=== PATIENT | female | born 1985 | race Caucasian/White ===

== ENCOUNTER → 2017-12-17 | Outpatient (REF) | payer BC ==
[2017-12-17 12:38] LABS: BASO # 0.1 10^3/uL (0.0-0.2); BASO % 1.2 % (0.0-1.0); EOS # 0.3 10^3/uL (0.0-0.50); EOS % 5.9 % (0.0-3.0); HEMATOCRIT 40.7 % (36.0-47.0); HEMOGLOBIN 13.1 g/dl (12.0-15.5); IMMATURE GRANULOCYTE % 0.2 % (0-3.0); LYMPH # 1.7 10^3/uL (1.5-4.5); LYMPH % 30.1 % (24.0-44.0); MEAN CORPUSCULAR HEMOGLOBIN 29.2 pg (27.0-33.0); MEAN CORPUSCULAR HGB CONC 32.2 g/dl (32.0-36.5); MEAN CORPUSCULAR VOLUME 90.6 fl (80.0-96.0); MONO # 0.4 10^3/uL (0.0-0.8); MONO % 7.1 % (0.0-5.0); NEUTROPHILS # 3.1 10^3/uL (1.8-7.7); NEUTROPHILS % 55.5 % (36.0-66.0); PLATELET COUNT, AUTOMATED 239 10^3/uL (150-450); RED BLOOD COUNT 4.49 10^6/uL (4.00-5.40); RED CELL DISTRIBUTION WIDTH 12.9 % (11.5-14.5); WHITE BLOOD COUNT 5.6 10^3/uL (4.0-10.0)
[2017-12-17 12:58] LABS: VITAMIN B12 LEVEL 456 PG/ML (247-911)
[2017-12-17 13:11] LABS: FERRITIN 32 NG/ML (8-252); FREE T4 0.94 NG/DL (0.76-1.46); IRON (FE) 55 UG/DL (50-170); PERCENT SATURATION 14.6 % (13.2-45.0); TOTAL IRON BINDING CAPACITY 377 UG/DL (250-450)
[2017-12-18 08:06] LABS: DEHYDROEPIANDROSTERONE SULFATE 51.7 ug/dL (84.8-378.0)
[2017-12-19 00:08] LABS: ANA (HEP2) Negative (.); TESTOSTERONE FREE (DIRECT) 0.6 pg/mL (0.0-4.2)
== END ==
LOC: M SFHCPLAZ 08:36
DX: L65.9 Nonscarring hair loss, unspecified (principal)
CPT/HCPCS: 83550

== ENCOUNTER 2018-04-07 17:17 | Emergency (ER) | payer OTHER, BC ==
[2018-04-07] MEDS: NORCO 5/325MG TABLET (BULK FOR ED) PO (20:09)
== END 2018-04-07 20:12 | disposition home or self-care (01) ==
LOC: M ED 17:17
DX: S60.211A Contusion of right wrist, initial encounter (principal); W01.0XXA Fall on same level from slipping, tripping and stumbling without subsequent striking against object, initial encounter; Y92.89 Other specified places as the place of occurrence of the external cause; Y99.0 Civilian activity done for income or pay; L65.9 Nonscarring hair loss, unspecified; Z87.891 Personal history of nicotine dependence; J30.1 Allergic rhinitis due to pollen; J30.81 Allergic rhinitis due to animal (cat) (dog) hair and dander
CPT/HCPCS: 73110

== ENCOUNTER 2019-12-16 14:32 | Emergency (ER) | payer BC, OTHER ==
[~2019-12-16] VITALS: Ht 165.1 cm; Wt 95.5 kg
[~2019-12-16 14:32] MED LIST: HYDR-3715 PO; PROP1TAB PO
[2019-12-16] MEDS ORDERED: TIZA2TA PO (14:41)
[2019-12-16] MEDS ORDERED: ESCI10TA16 PO (14:41)
[2019-12-16] MEDS ORDERED: PENI1TAB17 PO (14:41)
[2019-12-16] MEDS ORDERED: METOCLOPRAMIDE INJ 10MG/2ML VIAL (J2765 PER 1) IV ONE (15:15)
[2019-12-16] MEDS ORDERED: KETOROLAC 30 MG/ML 1ML VIAL IV ONE (15:15)
[2019-12-16 16:45] VITALS: BP 115/56
== END 2019-12-16 16:57 | disposition home or self-care (01) ==
LOC: M ED 14:32
DX: G43.109 Migraine with aura, not intractable, without status migrainosus (principal); F41.1 Generalized anxiety disorder; Z79.899 Other long term (current) drug therapy; Z79.3 Long term (current) use of hormonal contraceptives
CPT/HCPCS: 96374; 96375; 99284; J1885; J2765

== ENCOUNTER 2021-01-14 16:33 | Emergency (ER) | payer BC ==
[~2021-01-14] VITALS: Ht 165.1 cm; Wt 99.9 kg
[~2021-01-14 16:33] MED LIST changes: +ESCI10TA16 PO; +PENI1TAB17 PO; +TIZA2TA PO
[2021-01-14] MEDS ORDERED: FLOM0.4C39 PO (16:53)
[2021-01-14] MEDS ORDERED: ACETAMINOPHEN TAB 650MG DOSE (2X325MG) PO ONE (20:10)
[2021-01-14 20:20] LABS: BASO % 0.5 % (0.0-1.0); EOS # 0.1 10^3/uL (0.0-0.5); EOS % 1.3 % (0.0-3.0); HEMATOCRIT 37.6 % (36.0-47.0); LYMPH # 1.1 10^3/uL (1.5-5.0); LYMPH % 20.7 % (24.0-44.0); MEAN CORPUSCULAR HEMOGLOBIN 27.9 pg (27.0-33.0); MEAN CORPUSCULAR HGB CONC 31.9 g/dl (32.0-36.5); MEAN CORPUSCULAR VOLUME 87.4 fl (80.0-96.0); MONO # 0.5 10^3/uL (0.0-0.8); MONO % 8.2 % (2.0-8.0); NEUTROPHILS # 3.8 10^3/uL (1.5-8.5); NEUTROPHILS % 69.1 % (36.0-66.0); PLATELET COUNT, AUTOMATED 200 10^3/uL (150-450); WHITE BLOOD COUNT 5.5 10^3/uL (4.0-10.0)
[2021-01-14 20:50] LABS: BLOOD UREA NITROGEN 14 MG/DL (7-18); CALCIUM LEVEL 8.8 MG/DL (8.5-10.1); CARBON DIOXIDE LEVEL 27 MEQ/L (21-32); CHLORIDE LEVEL 105 MEQ/L (98-107); CREATININE FOR GFR 0.82 MG/DL (0.55-1.30); GLOMERULAR FILTRATION RATE > 60.0 (>60); GLUCOSE, FASTING 99 MG/DL (70-100); POTASSIUM SERUM 4.2 MEQ/L (3.5-5.1); SODIUM LEVEL 138 MEQ/L (136-145)
--- NOTE | 2021-01-14 21:34 | REPVR ---
PROCEDURE INFORMATION: Exam: CT Abdomen And Pelvis Without Contrast Exam date and time: 01/14/2021 8:57 PM Age: 35 years old Clinical indication: Abdominal pain; Additional info: R/O obstructive pyelonephritis TECHNIQUE: Imaging protocol: Computed tomography of the abdomen and pelvis without contrast. Radiation optimization: All CT scans at this facility use at least one of these dose optimization techniques: automated exposure control; mA and/or kV adjustment per patient size (includes targeted exams where dose is matched to clinical indication); or iterative reconstruction. COMPARISON: No relevant prior studies available. FINDINGS: Lungs: Minimal bilateral lower lobe fibro-atelectatic change. Liver: Normal. No mass. Gallbladder and bile ducts: Normal. No calcified stones. No ductal dilation. Pancreas: Normal. No ductal dilation. Spleen: Minimal splenic calcification is noted. Adrenal glands: Normal. No mass. Kidneys and ureters: Bilateral extrarenal pelves. Stomach and bowel: Unremarkable. No obstruction. No mucosal thickening. Appendix: A normal appendix is seen. Intraperitoneal space: Unremarkable. No free air. No significant fluid collection. Vasculature: Unremarkable. No abdominal aortic aneurysm. Lymph nodes: Unremarkable. No enlarged lymph nodes. Urinary bladder: Unremarkable as visualized. Reproductive: Status post hysterectomy. Bones/joints: Unremarkable. No acute fracture. Soft tissues: Minimal fat filled umbilical hernia. IMPRESSION: 1. Status post hysterectomy. 2. Otherwise negative CT abdomen/pelvis. No renal or ureteral calculi are evident and there is no evidence of obstructive uropathy. Pyelonephritis is difficult to exclude without contrast. Electronically signed by: Jhonatan Guthrie On 01/14/2021 21:34:06 PM
[2021-01-14] MEDS ORDERED: cefTRIAXone SOD 1 GM in D5W MINI-BAG PLUS 50 ML IV ONE (21:45)
[2021-01-14] MEDS ORDERED: PYRI1TAB5 PO (21:47)
[2021-01-14] MEDS ORDERED: CEPH500C PO (21:47)
[2021-01-14 22:14] VITALS: BP 128/65
== END 2021-01-14 22:16 | disposition home or self-care (01) ==
LOC: M ED 16:33
DX: N30.90 Cystitis, unspecified without hematuria (principal); F41.9 Anxiety disorder, unspecified; Z87.442 Personal history of urinary calculi
CPT/HCPCS: 74176; 80048; 81001; 85025; 87040; 87088; 87186; 96365; 99284; J0696

== ENCOUNTER → 2021-01-29 | Outpatient (REF) | payer BC ==
[~2021-01-29] MED LIST changes: +CEPH500C PO; +FLOM0.4C39 PO; +PYRI1TAB5 PO
[2021-01-29 15:44] LABS: APPEARANCE, URINE CLEAR (CLEAR); BACTERIA, URINE AUTO NEGATIVE (NEGATIVE); BILIRUBIN, URINE AUTO NEGATIVE (NEGATIVE); BLOOD, URINE BLOOD NEGATIVE (NEGATIVE); COLOR, URINE STRAW (YELLOW); GLUCOSE, URINE (UA) AUTO NEGATIVE (NEGATIVE); KETONE, URINE AUTO NEGATIVE (NEGATIVE); LEUKOCYTE ESTERASE, URINE AUTO TRACE (NEGATIVE); NITRITE, URINE AUTO NEGATIVE (NEGATIVE); PROTEIN, URINE AUTO NEGATIVE (NEGATIVE); RBC, URINE AUTO 0 /HPF (0-3); SPECIFIC GRAVITY URINE AUTO 1.005 (1.002-1.035); SQUAMOUS EPITHELIAL CELL UR AU 1 /HPF (0-6); UROBILINOGEN, URINE AUTO 0.2 mg/dL (0.0-2.0); WBC, URINE AUTO 0 /HPF (0-3)
== END ==
LOC: M SFHCPLAZ 12:59
PROVIDERS: ATTEND Family Medicine
DX: R30.0 Dysuria (principal)

== ENCOUNTER → 2021-03-07 | Outpatient (REF) | payer BC | LOC: M SFHCPLAZ 12:59 | PROVIDERS: ATTEND Family Medicine | DX: J02.9 Acute pharyngitis, unspecified (principal) ==

== ENCOUNTER → 2021-04-09 | Outpatient (CLI) | payer BC ==
--- NOTE | 2021-04-10 22:52 | REPVR ---
PROCEDURE INFORMATION: Exam: CT Maxillofacial Without Contrast, Sinus Exam date and time: 04/09/2021 11:51 AM Age: 35 years old Clinical indication: Face pain; Additional info: Chronic sinusitis TECHNIQUE: Imaging protocol: CT Maxillofacial without contrast. Focus on the sinuses. Radiation optimization: All CT scans at this facility use at least one of these dose optimization techniques: automated exposure control; mA and/or kV adjustment per patient size (includes targeted exams where dose is matched to clinical indication); or iterative reconstruction. COMPARISON: No relevant prior studies available. FINDINGS: Frontal sinuses: Complete opacification of the right frontal sinus. Left frontal sinus is clear. Ethmoid air cells: Mucosal thickening and fluid causing partial opacification of the ethmoid air cells, worse on the right. There is opacification of both frontal ethmoid recesses. Sphenoid sinuses: Clear. Maxillary sinuses: Circumferential mucosal thickening with mild fluid in both maxillary sinuses, worse on the right. Partial opacification of both ostiomeatal complexes. Nasal cavity/Septum: Nasal septum is deviated to the right with a right sided septal spur. No perforation or hematoma. Mild mucosal thickening in the nasal cavity. Orbital cavity: Orbits are normal. Globes are unremarkable. Bones/joints: Unremarkable. Soft tissues: Unremarkable. IMPRESSION: Chronic pansinusitis. Electronically signed by: Ean Lora On 04/10/2021 22:52:20 PM
== END ==
LOC: M PLAIMG 11:33
PROVIDERS: ATTEND Family Medicine
DX: J32.4 Chronic pansinusitis (principal)

== ENCOUNTER → 2021-04-11 | Outpatient (CLI) | payer BC ==
--- NOTE | 2021-04-11 09:12 | REP ---
INDICATION: RIBB PAIN ON RIGHT. COMPARISON: Comparison radiographs are from February 12, 2013. TECHNIQUE: Five views including PA chest. FINDINGS: PA chest radiograph is normal. There is no evidence of pneumothorax or hydrothorax. Mediastinum is not widened. Heart size is normal. Lung morales are clear. Multiple views of the right rib cage show intact right ribs. No bony destructive lesion or fracture is seen. The IMPRESSION: Negative right rib radiographic series. <Electronically signed by Jorge Ji > 04/11/21 0944
== END ==
LOC: M PLAIMG 08:35
PROVIDERS: ATTEND Family Medicine
DX: R07.81 Pleurodynia (principal)

== ENCOUNTER → 2021-05-15 | Outpatient (CLI) | payer BC ==
[~2021-05-15] MED LIST changes: +ACET32TAB PO; +ALLE180T33 PO; +FLON1SPR
== END ==
LOC: M LABSMTC 10:42
PROVIDERS: ATTEND Anesthesiology
DX: Z11.52 Encounter for screening for COVID-19 (principal)

== ENCOUNTER 2021-05-20 08:13 | Day surgery (SDC) | payer BC ==
[~2021-05-20] VITALS: Ht 165.1 cm; Wt 100.2 kg
[~2021-05-20 08:13] MED LIST changes: +LR 1,000 ML IV ONE
--- OUTSIDE RECORDS SUMMARY | 2021-05-20 08:18 | CCD ---
Author Author [facility] Organization [facility] Address [address] [place], [place] [id number] Phone Care Team Providers Care Wide Area Network Administrator Name Role Phone FINA HENDERSON Unavailable Allergies, Adverse Reactions, Alerts latex 03/15/2016 adhesive 09/18/2019 Allergies Removed from Chart: No Known Drug Allergies 09/18/2019 Medications * Discontinued: * CLHOÉ CABALLERO * citalopram 10 mg tablet 02/13/2021 * FINA GABRIEL * No Active Medications 03/15/2016 * amoxicillin 875 mg tablet 05/30/2020 * terbinafine HCL 1 % topical cream 01/12/2021 * triamcinolone acetonide 0.025 % topical cream 01/12/2021 * ketorolac 10 mg tablet 02/13/2021 * Zofran 4 mg tablet 02/13/2021 * Flomax 0.4 mg capsule 02/13/2021 * Macrobid 100 mg capsule 02/13/2021 * Mucinex DM 60 mg-1,200 mg tablet,extended release 12 hr 04/30/2021 * Sudafed 30 mg tablet 04/30/2021 * azelastine 137 mcg (0.1 %) nasal spray aerosol 04/30/2021 * Chloraseptic Max Sore Throat 1.5 %-33 % mucosal spray 04/30/2021 * * Lidocaine Viscous 2 % mucosal solution 03/17/2016 * dexAMETHasone 4 mg tablet 03/17/2016 * No Active Medications 03/17/2016 * ketorolac 10 mg tablet 05/03/2017 * Augmentin 500 mg-125 mg tablet 05/03/2017 * Augmentin 875 mg-125 mg tablet 09/18/2019 * predniSONE 20 mg tablet 09/18/2019 * predniSONE 20 mg tablet 03/05/2021 * amoxicillin 875 mg tablet 03/05/2021 * Pre-existing: * SUMAtriptan 100 mg tablet Problems Addressed During This Encounter Contact with and (suspected) exposure to other viral communicable diseases (Z20.828) 02/13/2021 Nasal congestion (R09.81) 02/13/2021 Cough (R05) 03/05/2021 Diarrhea, unspecified (R19.7) 04/30/2021 Headache, unspecified (R51.9) 04/30/2021 Resolved: Acute pharyngitis, unspecified (J02.9) 09/18/2019 Migraine without aura, intractable, with status migrainosus (G43.011) 09/18/2019 Acute bronchitis, unspecified (J20.9) 09/18/2019 Tension-type headache, unspecified, intractable (G44.201) 09/18/2019 Overweight (E66.3) 09/18/2019 Asymptomatic menopausal state (Z78.0) 09/18/2019 Nonscarring hair loss, unspecified (L65.9) 09/18/2019 Acute pharyngitis, unspecified (J02.9) 09/18/2019 Acute frontal sinusitis, unspecified (J01.10) 09/18/2019 Acute maxillary sinusitis, unspecified (J01.00) 09/18/2019 Myalgia, unspecified site (M79.10) 09/18/2019 Acute nasopharyngitis [common cold] (J00) 09/18/2019 Postnasal drip (R09.82) 09/18/2019 Jaw pain (R68.84) 05/30/2020 Frequency of micturition (R35.0) 06/26/2020 Dysuria (R30.0) 06/26/2020 Rash and other nonspecific skin eruption (R21) 06/26/2020 Contact with and (suspected) exposure to other viral communicable diseases (Z20.828) 01/12/2021 Acute pharyngitis, unspecified (J02.9) 01/12/2021 Nasal congestion (R09.81) 01/12/2021 Cough (R05) 01/12/2021 Hematuria, unspecified (R31.9) 02/13/2021 Dysuria (R30.0) 02/13/2021 Unspecified abdominal pain (R10.9) 02/13/2021 Acute sinusitis, unspecified (J01.90) 03/05/2021 Otitis media, unspecified, right ear (H66.91) 03/05/2021 Acute pharyngitis, unspecified (J02.9) 04/30/2021 Results Leukocytes: Negative 05/30/2020 Nitrite: Negative 05/30/2020 Urobilinogen: 0.2 mg/dL 05/30/2020 Protein: Negative 05/30/2020 pH: 6.0 05/30/2020 Blood (Urine): Negative 05/30/2020 Specific Ariton: 1.030 05/30/2020 Ketone: Negative 05/30/2020 Bilirubin: Negative 05/30/2020 Glucose: Negative 05/30/2020 SARS COV2 SOURCE: NASOPHARYNGEAL 2019 Leukocytes: Moderate 01/12/2021 Nitrite: Negative 01/12/2021 Urobilinogen: 0.2 mg/dL 01/12/2021 Protein: Negative 01/12/2021 pH: 5.5 01/12/2021 Blood (Urine): Hemol +++ 01/12/2021 Specific Ariton: 1.015 01/12/2021 Ketone: Negative 01/12/2021 Bilirubin: Negative 01/12/2021 Glucose: Negative 01/12/2021 Chief Complaint COVID TESTING Upper Respiratory Infection, Likely ruel l; no bacterial source appreciated; nontoxic appearance at this time; afebrile and vital signs unremarkable; will treat as follows: Rest, fluids, time, and reassurance. [COVID test prior to entry into the building was NEGATIVE]Medications as above F/u if symptoms worsen including high grade fevers of 102.5 F, shortness of breath, increased work of breathing, or lethargic appearance. Patient understands and concurs with treatment plan. sinus congestion Patient tests negative for Covid 19 by P CRStart amoxicillin and prednisone for ear infection and sinus infection continue Mary and Flonase sinus infection Back painCVA tendernessHematuriaAlmost c ertainly kidney stoneHistoryStart Flomax ketorolac and ZofranLots of fluidsCT scan as soon as it can be approved by her insurance company KIDNEY STONE [Patient exposed to other individual nico t has a known or suspected COVID19 infection.][Patient is showing some symptoms of Covid like illness.] [Patient requires negative testing prior to return to work/school.]Patient wishes to have testing conducted. All questions answered for patient. Follow up as needed. PolyuriaUrinalysis unrevealingBlood suga r normalFungal rashStart terbinafine and triamcinolone yeast infection Jaw painLikely dental infectionStart kali xicillinFollow-up of the dentist tooth pain Unremarkable examVital signs are Yong apid flu was negativeDiscussed with patient she does have some evidence of postnasal discharge and fluid behind the tympanic membranes which could be causing her discomfortDifferential does include viral infection as well given close contact with others with similar symptomsPatient was educated on supportive symptom managementFollow-up if symptoms fail to improve SICK C/O sinus pressure, cough, nasal congest ion, BOOKER, ear pressure, dizziness, post nasal drip, SOB, nausea, chills x 2 weeks. Headache since this am. Cold symptoms wi th productive cough. C/O BOOKER, nausea, light sensitivity beginn ing 11:00 today. C/O ST, white patches in throat, BOOKER begi nning this AM. Procedures Performed and Ordered Today * RAPID STREP 03/15/2016 * MED SERV, LILIAN/WKEND/HOLIDAY 03/15/2016 * MED SERV, LILIAN/WKEND/HOLIDAY 03/17/2016 * INJECTION IM/SC 03/17/2016 * INFLUENZA ASSAY W/OPTIC 07/24/2019 * MED SERV, LILIAN/WKEND/HOLIDAY 07/24/2019 * MED SERV, LILIAN/WKEND/HOLIDAY 09/18/2019 * URINALYSIS NONAUTO W/O SCOPE 05/30/2020 * MED SERV, LILIAN/WKEND/HOLIDAY 05/30/2020 * INFECTIOUS AGENT ANTIGEN DETECTION 06/26/2020 * URINALYSIS NONAUTO W/O SCOPE 01/12/2021 * MED SERV, LILIAN/WKEND/HOLIDAY 01/12/2021 * COVID PCR 02/13/2021 * INFECTIOUS AGENT DETECTION COMPLETED WITHIN 2 DAYS 02/13/2021 * COVID PCR 03/05/2021 * INFECTIOUS AGENT DETECTION COMPLETED WITHIN 2 DAYS 03/05/2021 * COVID PCR 04/30/2021 * INFECTIOUS AGENT DETECTION COMPLETED WITHIN 2 DAYS 04/30/2021 * * Lab: Collected Date 03/15/16 11:54 03/15/2016 THROAT PO CULTURE 03/15/2016 GLUCOSE BLOOD TEST 05/30/2020 COVID PCR 06/26/2020 Collected Date 01/12/21 13:14 01/12/2021 URINE CULTURE 01/12/2021 Imaging: CT ABDOMEN AND PELVIS W/O CONTRAST renal stone protocol 01/12/2021 Injection: PROMETHAZINE (PHENERGAN) 25MG 03/17/2016 KETOROLAC 30MG 03/17/2016 Vital signs Body Temperature: Heart Rate: Respiratory Rate: BP: Height: Weight: BMI: O2 Percentage dC Oximetry : Inhaled Oxygen Concentration: 97.9F 03/05/2021 74 beats per minute 03/05/2021 16 breaths per minute 03/05/2021 128/ 82 mmHg 03/05/2021 5ft, 5in 03/05/2021 220lbs 03/05/2021 36.606 03/05/2021 99% 03/05/2021 21% 03/05/2021 Immunizations Social History Smoking Status: Never smoker. 03/05/2021 Reason for Referral Functional Status Plan of Treatment Procedures Scheduled: CT ABDOMEN AND PELVIS W/O CONTRAST 01/12/2021 Appointments Sched ed: Tuesday, March 15, 2016, 11:30 AM, FINA GABRIEL Thursday, March 17, 2016, 4:40 PM, FINA GABRIEL Tuesday, August 02, 2016, 4:40 PM, NEW GABRIEL Wednesday, March 15, 2017, 10:10 AM, Davion Lay NP Wednesday, May 03, 2017, 1:10 PM, NEW GABRIEL Wednesday, July 24, 2019, 1:10 PM, HI RICHARDSON NP Wednesday, September 18, 2019, 12:00 PM, FINA GABRIEL Saturday, May 30, 2020, 7:20 PM, FINA GABRIEL Friday, June 26, 2020, 6:00 PM, GERALDINE MUSE NP Tuesday, January 12, 2021, 12:40 PM, FINA GABRIEL Saturday, February 13, 2021, 4:20 PM, FINA GABRIEL Friday, March 05, 2021, 5:50 PM, DONTAE GABRIEL Friday, April 30, 2021, 10:00 AM, Visits Covid Instructions: <Follow up with primary care> Return if symptoms worsen <Follow up with primary care> Consider using a barrier method for control while on antibiotics as antibiotics may inhibit the effectiveness of oral contraceptives. Return if symptoms worsen When taking antibiotics, also take probiotics. <Follow up with primary care> We will call with lab and/or xray results If your symptoms worsen, go to the Emergency Room. <Follow up with primary care> Return if symptoms worsen <Follow up with primary care> Return if symptoms worsen <Follow up with primary care> Consider using a barrier method for control while on antibiotics as antibiotics may inhibit the effectiveness of oral contraceptives. Treat fever with ibuprofen and/or acetaminophen per label instructions as needed unless allergic or otherwise intolerant. Return if symptoms worsen When taking antibiotics, also take probiotics. Follow up with the dentist <Follow up with primary care> Return if symptoms worsen Increase clear water intake, salt water gargle 4 times a day, honey or lemon teaAllergy nasal spray recommendedTylenol or Motrin for body aches or feverNasal decongestant recommendedOffered prescription and you declined <Follow up with primary care> Treat fever with ibuprofen and/or acetaminophen per label instructions as needed unless allergic or otherwise intolerant. Return if symptoms worsen When taking antibiotics, also take probiotics. Return if symptoms worsen If your symptoms worsen, go to the Emergency Room. When taking antibiotics, also take probiotics. The patient knows that she is not to take her a laxative tonight after having the injection todayShe may take the antibiotic for the respiratory symptoms that she is havingIf she is not better she needs to follow up with her PCP If your symptoms worsen, go to the Emergency Room. followup with primary care Return if symptoms worsen We will call with lab and/or xray results Payers Insurance Policy Type Po licy ID Relation Subscriber Expi ration [facility] [employer] [id number] Self JANET HA 07/11/2020 [facility] [employer] [id number] Self JANET HA ID IDENTIFICATION Other Insurance Self JANET HA Encounters OFFICE/OUTPATIENT SIT,EST 04/30/2021 Diagnoses Diarrhea, unspecified Headache, unspecified Cough Contact with and (suspected) exposure to other viral communicable diseases Nasal congestion OFFICE/OUTPATIENT SIT, EST 03/05/2021 Diagnoses Cough Acute pharyngitis, unspecified Contact with and (suspected) exposure to other viral communicable diseases Nasal congestion OFFICE/OUTPATIENT SIT, EST 02/13/2021 Diagnoses Contact with and (suspected) exposure to other viral communicable diseases Nasal congestion Acute sinusitis, unspecified Otitis media, unspecified, right ear OFFICE/OUTPATIENT SIT, EST 01/12/2021 Diagnoses Hematuria, unspecified Dysuria Unspecified abdominal pain OFFICE/OUTPATIENT SIT, EST 06/26/2020 Diagnoses Contact with and (suspected) exposure to other viral communicable diseases Acute pharyngitis, unspecified Nasal congestion Cough OFFICE/OUTPATIENT SIT, EST 06/26/2020 Diagnoses Contact with and (suspected) exposure to other viral communicable diseases Acute pharyngitis, unspecified Nasal congestion Cough OFFICE/OUTPATIENT SIT, EST 05/30/2020 Diagnoses Frequency of micturition Dysuria Rash and other nonspecific skin eruption OFFICE/OUTPATIENT SIT, EST 09/18/2019 Diagnoses Jaw pain OFFICE/OUTPATIENT SIT, EST 07/24/2019 OFFICE/OUTPATIENT SIT, EST 05/03/2017 OFFICE/OUTPATIENT SIT, EST 08/02/2016 OFFICE/OUTPATIENT SIT, EST 03/17/2016 OFFICE/OUTPATIENT SIT, NEW 03/15/2016
--- OUTSIDE RECORDS SUMMARY | 2021-05-20 08:18 | CCD ---
Author Author [facility] Organization [facility] Address Unknown Phone Unavailable Care Team Providers Care Benzol Still Operator Name Role Phone Zaria Cartagena Unavailable PROBLEMS Type Condition ICD9-CM Code CLN06-XO Code Onset Dates Condition S tatus W/U Status Risk SNOMED Code Notes Problem Acquired absence of both cervix and uterus Z90.710 Active confirmed 965435221 Problem Androgenetic alopecia L64.9 Active confirmed 05469212 Problem Cigarette nicotine dependence in remission F17.211 Active confirmed 227102686 Problem Chronic sinusitis, unspecified location J32.9 Active confirmed 75853153 Problem Acute non-seasonal allergic rhinitis, unspecified trigger J30.89 Active confirmed 51552124 Problem Chronic pansinusitis J32.4 Active confirmed 15635962 Problem Migraine syndrome G43.909 Active confirmed 3 1258087 Problem Generalized anxiety disorder F41.1 Active confirme d 39603150 Problem Psychophysiologic insomnia F51.04 Active confirmed 170556762 Problem Chronic tension-type headache, not intractable G44 .229 Active confirmed 077637901 ALLERGIES Allergen (clinical drug ingredient) Drug/Non Drug Allergy do cumented on EMR Reaction Allergy Type Onset Date Status adhesives Rash Non Drug Allergy Active Wheat wheat GI upset Non Drug Allergy Active levofloxacin levoFLOXacin([facility] Code:[address]-83) Rash, swelling Drug Allergy Active ENCOUNTERS from 1983 to 2021-04-12 Encounter Location Date Provider Diagnosis [facility] [phone] [place] [address] Mar, Zaria Cartagena Chronic pansinusitis J32.4 a nd Rib pain on right side R07.81 IMMUNIZATIONS No Information SOCIAL HISTORY Tobacco Use: Social History Observation Description Date Details (start date - stop date) Former Smoker Sex Assigned At : Social History Observation Description Sex Assigned At Unknown Education: Question Answer Notes Level of Education: High School Audit Question Answer Notes Total Score: 0 Interpretation: Alcohol Education Language: Question Answer Notes Languages spoken: [place] Synagogue: Question Answer Notes Synagogue No methodist beliefs that would impact health care. Domestic Violence: Question Answer Notes Status: Partnered Number of months/years in current relationship? 9 years with current partner, no abuse Sexual Hx: Question Answer Notes Had sex in the last 12 months (vaginal, oral, or anal)? Yes with Men only Drug and Alcohol Question Answer Notes Total Score: 0 Interpretation: No problems reported Alcohol Screening: Question Answer Notes Did you have a drink containing alcohol in the past year? No Points 0 Interpretation Negative BMI Care Goal Follow-Up Question Answer Notes Above Normal BMI Follow-Up Dietary management educatio n, guidance, and counseling Tobacco Use: Question Answer Notes Are you a: former smoker - last cigarette was on 10/11/2016 REASON FOR REFERRAL from 1983 to 2021-04-12 Reason Please evaluate and treat; h as persistent sinusitis despite Augmentin x 3 weeks, doxycycline x 2 weeks; had allergic reaction to levofloxacin Diagnosis 1 Chronic pansinusitis (J32.4) Referral Organization [facility] Referring Provider First Name Zaria Referring Provider Last Name Mitzi Referring Provider Specialty Family Medicine Referred Provider [facility] ([facility]) Referred Provider Specialty Otolaryngology Referral Priority Routine General Notes Pamela Montanez 04/11/2021 11:15:40 AM > referral faxed VITAL SIGNS Weight 220 lbs Mar, Height 65.25 in Mar, BMI 36.33 kg/m2 Mar, Heart Rate 96 /min Mar, Respiratory Rate 18 /min Mar, Temperature 97.0 degrees Fahrenheit Mar, Oximetry 97% Mar, Blood pressure systolic 112 mm Hg Mar, Blood pressure diastolic 70 mm Hg Mar, MEDICATIONS Medication SIG (Take, Route, Frequency, Duration) Notes Start Da te End Date Status diphenhydrAMINE HCl 25 MG 1 tablet Orally Q4H PRN for 10 day(s) Mar, Active Mary Allergy 60 MG 1 tablet as needed Orally Once a day Active Multi Complete - as directed Orally Active Sudafed Cold/Cough 34-25-724-250 MG 2 capsules every 4 hours as needed Orally Four times a day Not-Taking tiZANidine HCl 2 MG 1 tablet as needed Orally Three times a day for 30 Days November, Not-Taking Flonase Allergy Relief 50 MCG/ACT 1 spray in each nostril Nasall y Once a day Active Doxycycline Hyclate 100 MG 1 tablet Orally every 12 hrs for 10 d ay(s) Mar, Active PROCEDURES No Information RESULTS No Results REASON FOR VISIT F/u sinusitis MEDICAL (GENERAL) HISTORY Type Description Date Medical History Anxiety Medical History Insomnia Medical History Allergic rhinitis - environmental and la eileen allergies Medical History History of endometriosis and adenomyosis, treated with total hysterectomy in 2009 Medical History History of cervical pre-cancer Medical History Asthma as a child Medical History History of kidney stones Surgical History left arm 1995 Surgical History lithotripsy for kidney stone on the righ t Surgical History LEEP/partial cervicectomy 2007 Surgical History laparoscopy for diagnosis of endometrios is 2004 Surgical History D&C status post miscarriage 2005, 2008 Surgical History laparoscopic assisted total hysterectomy/bilateral salpingo-oophorectomy 2009 Hospitalization History surgeries as above Goals Section No Information Health Concerns No Information MEDICAL EQUIPMENT No Information MENTAL STATUS No Information FUNCTIONAL STATUS No Information ASSESSMENTS Encounter Date Diagnosis Assessment Notes Treatment Notes Treatm ent Clinical Notes Mar, Chronic pansinusitis (ICD-10 - J32.4) Mar, Rib pain on right side (ICD-10 - R07.81) Requesting xrays; states she broke ribs coughing with bronchitis several years ago. _update: xrays negative for fx; advised patient this is likely MSK/Chest wall strain from coughing, recommended OTC ibuprofen or acetaminophen and heating pad, and treat underlying problem causing the coughing (sinusitis) so that she can heal. PLAN OF TREATMENT Medication Medication Name Sig Start Date Stop Date Doxycycline Hyclate 100 MG 1 tablet Orally every 12 hrs for 10 day(s) Mar, Treatment Notes Assessment Notes Clinical Notes Rib pain on right side Requesting xrays; states she broke ribs coughing with bronchitis several years ago._update: xrays negative for fx; advised patient this is likely MSK/Chest wall strain from coughing, recommended OTC ibuprofen or acetaminophen and heating pad, and treat underlying problem causing the coughing (sinusitis) so that she can heal. Future Test Test Name Order Date PLZ RIBS UNILATERAL WITH PA CHEST [id number] Referrals Referral Date Details Please evaluate and treat; h as persistent sinusitis despite Augmentin x 3 weeks, doxycycline x 2 weeks; had allergic reaction to levofloxacin, ENT ([facility]) [facility] Next Appt Details 6 months Reason:Annual Provider Name:Zaria Cartagena, 2021-10-11 08:15:00 AM, [address], , [place], [phone], Follow Up:6 monthsAnnual Insurance Providers Payer Name Payer Address Payer Phone Insured Name Patient Relati onship to Insured Coverage Start Date Coverage End Date BCBS [place] PPO [phone] [facility] [employer] [place] [address] JANET HA self
--- OUTSIDE RECORDS SUMMARY | 2021-05-20 08:18 | CCD | Continuity of Care Document ---
Author Author Tresa SIMEON MD Organization Unknown Address [address] [facility], [address] [place] [address] Phone [phone] Care Team Providers Care Cardiovascular Technologist Name Role Phone Zaria Cartagena M.D. AUTM [phone] Problems Active Problems Provider Date Allergic asthma without status asthmaticus Santiago Simeon MD Onset: 04/29/2021 Chronic sinusitis Santiago Simeon MD Onset: 05/01/2021 Hypertrophy of nasal turbinates Santiago Simeon MD Onset: 1 Deviated nasal septum Santiago Simeon MD Onset: 05/01/2021 Allergic rhinitis Santiago Simeon MD Onset: 05/01/2021 Social History Type Date Description Comments Sex Unknown ETOH Use Never used alcohol Tobacco Use Start: Unknown End: Unknown Patient is a former smoker Recreational Drug Use Never Used Drugs Allergies and adverse reactions Active Allergies Criticality Reaction | Severity Comments Date Levofloxacin Unable to assess criticality Rash 04/29/2021 Adhesives Unable to assess criticality 04/29/2021 Medications Active Medications SIG Qnty Indications Ordering Provide r Date Multivitamin Tablets 1 by mouth every day Unknown Mary Allergy 60mg Tablets 1 by mouth every day Unknown Flonase Allergy Relief 50mcg/Act Suspension 2 sprays per nostril daily Unknown 0 Immunizations Description No Information Available Vital Signs Date Vital Result Comment 05/01/2021 10:49am BP Systolic 104 mmHg BP Diastolic 78 mmHg Heart Rate 96 /min O2 % BldC Oximetry 99 % Height 65.75 inches 5'5.75" Weight 222.00 lb BMI (Body Mass Index) 36.1 kg/m2 [place] Body Weight 125 lb Weight 100.699 kg BSA (Body Surface Area) 2.09 m2 Results Description No Information Available Procedures Description No Information Available Medical Devices Description No Information Available Encounters Description No Information Available Assessments Date Code Description Provider 05/01/2021 J30.9 Allergic rhinitis, unspecified Abe Simeon MD 05/01/2021 J34.2 Deviated nasal septum Santiago brunner MD 05/01/2021 J34.3 Hypertrophy of nasal turbinates Santiago Simeon MD 05/01/2021 J32.9 Chronic sinusitis, unspecified Abe Simeon MD Plan of Treatment 05/01/2021 - Santiago Simeon MD* J30.9 Allergic rhinitis, unspecified* Comments:* She is currently taking Flonase and Mary to treat her allergies. We will refer her for formal allergy testing. * J34.2 Deviated nasal septum* Comments:* We discussed the possibility for septal correction same day as the sinus surgery. She would like to proceed with this same day. * J34.3 Hypertrophy of nasal turbinates * J32.9 Chronic sinusitis, unspecified* Comments:* We discussed the CT findings with Tresa today. We discussed the CT findings with Tresa today. We discussed continued medical management versus surgical intervention. We reviewed the risks and benefits and all questions were answered. She indicated that would like to proceed with surgical intervention. She will avoid any NSAID type products and Multivite for 2 weeks prior to the procedure. We will arrange this in the near future. As soon as schedule permits. We will start he r on Doxycycline again to clear the infection. Functional Status Description No Information Available Mental Status Description No Information Available Referrals Refer to Reason for Referral Status Appt Date Santiago Simeon M.D. CHRONIC PANSINUSITIS Scheduled [address] [address] [phone]
--- OUTSIDE RECORDS SUMMARY | 2021-05-20 08:19 | CCD ---
Author Author [facility] Organization [facility] Address Unknown Phone Unavailable Care Team Providers Care Irrigation Pump Installer Name Role Phone Zaria Cartagena Unavailable PROBLEMS Type Condition ICD9-CM Code [id number] Code Onset Dates Condition S tatus W/U Status Risk SNOMED Code Notes Problem Acute non-seasonal allergic rhinitis, unspecified trigger J30.89 Active confirmed 24280201 Problem Acquired absence of both cervix and uterus Z90.710 Active confirmed 284487044 Problem Androgenetic alopecia L64.9 Active confirmed 15575045 Problem Chronic tension-type headache, not intractable G44 .229 Active confirmed 219846661 Problem Chronic sinusitis, unspecified location J32.9 Active confirmed 84899872 Problem Cigarette nicotine dependence in remission F17.211 Active confirmed 534074396 Problem Migraine syndrome G43.909 Active confirmed 3 0021501 Problem Generalized anxiety disorder F41.1 Active confirme d 29067844 Problem Psychophysiologic insomnia F51.04 Active confirmed 570034727 ALLERGIES Allergen (clinical drug ingredient) Drug/Non Drug Allergy do cumented on EMR Reaction Allergy Type Onset Date Status adhesives Rash Non Drug Allergy Active Wheat wheat GI upset Non Drug Allergy Active levofloxacin levoFLOXacin([facility] Code:[address]-60) Rash, swelling Drug Allergy Active ENCOUNTERS from 1983 to 2021-04-05 Encounter Location Date Provider Diagnosis [address] [phone] [place] [address] Mar, Zaria Cartagena Generalized anxiety disorder F41.1 and Chronic sinusitis, unspecified location J32.9 IMMUNIZATIONS No Information SOCIAL HISTORY Tobacco Use: Social History Observation Description Date Details (start date - stop date) Former Smoker Sex Assigned At : Social History Observation Description Sex Assigned At Unknown Education: Question Answer Notes Level of Education: High School Audit Question Answer Notes Total Score: 0 Interpretation: Alcohol Education Language: Question Answer Notes Languages spoken: Dominican Druze: Question Answer Notes Druze No sabianist beliefs that would impact health care. Domestic [...] cigarette was on 10/11/2016 REASON FOR REFERRAL No Information VITAL SIGNS Weight 221 lbs Mar, Height 65.25 in Mar, BMI 36.49 kg/m2 Mar, Heart Rate 94 /min Mar, Respiratory Rate 18 /min Mar, Temperature 96.1 degrees Fahrenheit Mar, Oximetry 100 Mar, Blood pressure systolic 110 mm Hg Mar, Blood pressure diastolic 62 mm Hg Mar, MEDICATIONS Medication SIG (Take, Route, Frequency, Duration) Notes Start Da te End Date Status diphenhydrAMINE HCl 25 MG 1 tablet Orally Q4H PRN for 10 day(s) Mar, Active Sudafed Cold/Cough [id number] MG 2 capsules every 4 hours as needed Orally Four times a day Not-Taking Flonase Allergy Relief 50 MCG/ACT 1 spray in each nostril Nasall y Once a day Active Multi Complete - as directed Orally Active tiZANidine HCl 2 MG 1 tablet as needed Orally Three times a day for 30 Days November, Not-Taking Mary Allergy 60 MG 1 tablet as needed Orally Once a day Active Doxycycline Hyclate 100 MG 1 tablet Orally every 12 hrs for 10 d ay(s) Mar, Active PROCEDURES No Information RESULTS No Results REASON FOR VISIT F/u sinusitis, anxiety MEDICAL (GENERAL) HISTORY Type Description Date Medical [...] Treatment Notes Treatm ent Clinical Notes Mar, Generalized anxiety disorder (ICD-10 - F41.1) She states anxiety improved since we spoke 2 months ago; she had a lot of work stress and her employer has hired another person to help her so she feels less stressed. She does not want to start medication for anxiety at this time. Mar, Chronic sinusitis, unspecified location (ICD-10 - J32.9) Some improvement with 3 week course of Augmentin, but then had rapid recurrence of symptoms. Will treat with levofloxacin and order sinus CT; contingency plan is referral to ENT. PLAN OF TREATMENT Medication Medication Name Sig Start Date Stop Date Mary Allergy 60 MG 1 tablet as needed Orally Once a day diphenhydrAMINE HCl 25 MG 1 tablet Orally Q4H PRN for 10 day(s) Mar, Doxycycline Hyclate 100 MG 1 tablet Orally every 12 hrs for 10 day(s) Mar, Flonase Allergy Relief 50 MCG/ACT 1 spray in each nostril Nasall y Once a day Treatment Notes Assessment Notes Clinical Notes Generalized anxiety disorder She states anxiety improved since we spoke 2 months ago; she had a lot of work stress and her employer has hired another person to help her so she feels less stressed. She does not want to start med ication for anxiety at this time. Chronic sinusitis, unspecified location Some improvement with 3 week course of Augmentin, but then had rapid recurrence of symptoms. Will treat with levofloxacin and order sinus CT; contingency plan is referral to ENT. Future Test Test Name Order Date CT Maxillofacial w/out Contrast [id number] Next Appt Details as sched in 1 week Reason: Provider Name:Zaria Cartagena, 2021-04-11 08:00:00 AM, [address] [facility], , [place], [address], Insurance Providers Payer Name Payer Address Payer Phone Insured Name Patient Relati onship to Insured Coverage Start Date Coverage End Date [facility] [phone] [facility] [employer] [facility] [employer] [place] [id number] JANET HA self
--- OUTSIDE RECORDS SUMMARY | 2021-05-20 08:19 | CCD ---
Author Author [facility] Organization [facility] Address Unknown Phone Unavailable Care Team Providers Care Fitter / Welder Name Role Phone Simon Coffey PA Unavailable Unavailable Coffey, Simon PA Unavailable Unavailable Coffey, Simon PA Unavailable Unavailable Coffey, Simon PA Unavailable Unavailable Coffey, Simon PA Unavailable Unavailable Coffey, Simon PA Unavailable Unavailable Coffey, Simon PA Unavailable Unavailable Coffey, Simon PA Unavailable Unavailable Coffey, Simon PA Unavailable Unavailable Coffey, Simon PA Unavailable Unavailable Coffey, Simon PA Unavailable Unavailable Coffey, Simon PA Unavailable Unavailable Coffey, Simon PA Unavailable Unavailable Coffey, Simon PA Unavailable Unavailable Coffey, Simon PA Unavailable Unavailable Coffey, Simon PA Unavailable Unavailable Coffey, Simon PA Unavailable Unavailable Coffey, Simon PA Unavailable Unavailable Coffey, Simon PA Unavailable Unavailable Coffey, Simon PA Unavailable Unavailable Coffey, Simon PA Unavailable Unavailable PHYSICIAN, PHYSICIAN ER Unavailable Unavailable JefstSergio MD Unavailable Unavailable SarmastSergio MD Unavailable Unavailable SarmastSergio MD Unavailable Unavailable SarmastSergio MD Unavailable Unavailable SarmastSergio MD Unavailable Unavailable SarmastSergio MD Unavailable Unavailable SarmastSergio MD Unavailable Unavailable SarmastSergio MD Unavailable Unavailable SarmastSergio MD Unavailable Unavailable SarmastSergio MD Unavailable Unavailable SarmastSergio MD Unavailable Unavailable SarmastSergio MD Unavailable Unavailable SarmastSergio MD Unavailable Unavailable SarmastSergio MD Unavailable Unavailable SarmastSergio MD Unavailable Unavailable SarmastSergio MD Unavailable Unavailable SarmastSergio MD Unavailable Unavailable SarmastSergio MD Unavailable Unavailable StephaniemastSergio MD Unavailable Unavailable StephaniemastSergio MD Unavailable Unavailable SarmastSergio MD Unavailable Unavailable SarmastSergio MD Unavailable Unavailable SarmastSergio MD Unavailable Unavailable StephaniemastSergio MD Unavailable Unavailable StephaniemastSergio MD Unavailable Unavailable SarmastSergio MD Unavailable Unavailable SarmastSergio MD Unavailable Unavailable SarmastSergio MD Unavailable Unavailable SarmastSergio MD Unavailable Unavailable SarmastSergio MD Unavailable Unavailable SarmastSergio MD Unavailable Unavailable StephaniemastSergio MD Unavailable Unavailable StephaniemastSergio MD Unavailable Unavailable SarmastSergio MD Unavailable Unavailable SarmastSergio MD Unavailable Unavailable SarmastSergio MD Unavailable Unavailable SarmastSergio MD Unavailable Unavailable SarmastSergio MD Unavailable Unavailable SarmastSergio MD Unavailable Unavailable SarmastSergio MD Unavailable Unavailable SarmastSergio MD Unavailable Unavailable SarmastSergio MD Unavailable Unavailable SarmastSergio MD Unavailable Unavailable StephaniemastSergio MD Unavailable Unavailable Sergio Abel MD Unavailable Unavailable Jonelle Rosario MD Unavailable Unavailable Jonelle Rosario MD Unavailable Unavailable Jonelle Rosario MD Unavailable Unavailable Jonelle Rosario MD Unavailable Unavailable Jonelle Rosario MD Unavailable Unavailable Jonelle Rosario MD Unavailable Unavailable Jonelle Rosario MD Unavailable Unavailable Jonelle Rosario MD Unavailable Unavailable Jonelle Rosario MD Unavailable Unavailable Jonelle Rosario MD Unavailable Unavailable Jonelle Rosario MD Unavailable Unavailable Jonelle Rosario MD Unavailable Unavailable Jonelle Rosario MD Unavailable Unavailable Jonelle Rosario MD Unavailable Unavailable Jonelle Rosario MD Unavailable Unavailable Jonelle Rosario MD Unavailable Unavailable Jonelle Rosario MD Unavailable Unavailable Jonelle Rosario MD Unavailable Unavailable Jonelle Rosario MD Unavailable Unavailable Jonelle Rosario MD Unavailable Unavailable Jonelle Rosario MD Unavailable Unavailable Jonelle Rosario MD Unavailable Unavailable Jonelle Rosario MD Unavailable Unavailable Jonelle Rosario MD Unavailable Unavailable Jonelle Rosario MD Unavailable Unavailable Jonelle Rosario MD Unavailable Unavailable Jonelle Rosario MD Unavailable Unavailable Jonelle Rosario MD Unavailable Unavailable Jonelle Rosario MD Unavailable Unavailable Jonelle Rosario MD Unavailable Unavailable Jonelle Rosario MD Unavailable Unavailable Jonelle Rosario MD Unavailable Unavailable Jonelle Rosario MD Unavailable Unavailable Jonelle Rosario MD Unavailable Unavailable Jonelle Rosario MD Unavailable Unavailable Jonelle Rosario MD Unavailable Unavailable Jonelle Rosario MD Unavailable Unavailable Jonelle Rosario MD Unavailable Unavailable Jonelle Rosario MD Unavailable Unavailable Jonelle Rosario MD Unavailable Unavailable Jonelle Rosario MD Unavailable Unavailable Jonelle Rosario MD Unavailable Unavailable Jonelle Rosario MD Unavailable Unavailable Jonelle Rosario MD Unavailable Unavailable Jonelle Rosario MD Unavailable Unavailable Jonelle Rosario MD Unavailable Unavailable Jonelle Rosario MD Unavailable Unavailable Jonelle Rosario MD Unavailable Unavailable Jonelle Rosario Samah Unavailable Unavailable Abraham, O Samah MD Unavailable Unavailable Jonelle Rosario Samah Unavailable Unavailable Abraham O Samah Unavailable Unavailable Jonelle Rosario Samah Unavailable Unavailable Abraham O Samah MD Unavailable Unavailable Abraham O Samah MD Unavailable Unavailable Abraham O Samah MD Unavailable Unavailable Abraham O Samah MD Unavailable Unavailable Abraham O Samah Unavailable Unavailable Abraham O Samah MD Unavailable Unavailable Abraham O Samah Unavailable Unavailable Abraham O Samah MD Unavailable Unavailable Abraham O Samah Unavailable Unavailable Abraham O Samah Unavailable Unavailable Abraham O Samah MD Unavailable Unavailable Abraham O Samah MD Unavailable Unavailable Abraham O Samah MD Unavailable Unavailable Abraham O Samah MD Unavailable Unavailable Abraham O Samah MD Unavailable Unavailable Abraham O Samah Unavailable Unavailable Abraham O Samah Unavailable Unavailable Jonelle Rosario Samah Unavailable Unavailable Abraham O Samah MD Unavailable Unavailable Abraham O Samah Unavailable Unavailable Jonelle Rosario Samah Unavailable Unavailable Jonelle Rosario Samah Unavailable Unavailable Jonelle Rosario Samah Unavailable Unavailable Jonelle Rosario Samah Unavailable Unavailable Abraham O Samah Unavailable Unavailable Abraham O Samah Unavailable Unavailable HENDERSON, W FINA PA Unavailable Unavailable HENDERSON, W FINA PA Unavailable Unavailable HENDERSON, W FINA PA Unavailable Unavailable HENDERSON, W FINA PA Unavailable Unavailable HENDERSON, W FINA PA Unavailable Unavailable HENDERSON, W FINA PA Unavailable Unavailable HENDERSON, W FINA PA Unavailable Unavailable HENDERSON, W FINA PA Unavailable Unavailable HENDERSON, W FINA PA Unavailable Unavailable HENDERSON, W FINA PA Unavailable Unavailable HENDERSON, W FINA PA Unavailable Unavailable HENDERSON, W FINA PA Unavailable Unavailable HENDERSON, W FNIA PA Unavailable Unavailable HENDERSON, W FINA PA Unavailable Unavailable HENDERSON, W FINA PA Unavailable Unavailable HENDERSON, W FINA PA Unavailable Unavailable HENDERSON, W FINA PA Unavailable Unavailable HENDERSON, W FINA PA Unavailable Unavailable HENDERSON, W FINA PA Unavailable Unavailable HENDERSON, W FINA PA Unavailable Unavailable HENDERSON, W FINA PA Unavailable Unavailable HENDERSON, W FINA PA Unavailable Unavailable HENDERSON, W FINA PA Unavailable Unavailable HENDERSON, W FINA PA Unavailable Unavailable HENDERSON, W FINA PA Unavailable Unavailable HENDERSON, W FINA PA Unavailable Unavailable HENDERSON, W FINA PA Unavailable Unavailable HENDERSON, W FINA PA Unavailable Unavailable HENDERSON, W FINA PA Unavailable Unavailable HENDERSON, W FINA PA Unavailable Unavailable HENDERSON, W FINA PA Unavailable Unavailable HENDERSON, W FINA PA Unavailable Unavailable HENDERSON, W FINA PA Unavailable Unavailable HENDERSON, W FINA PA Unavailable Unavailable HENDERSON, W FINA PA Unavailable Unavailable HENDERSON, W FINA PA Unavailable Unavailable HENDERSON, W FINA PA Unavailable Unavailable HENDERSON, W FINA PA Unavailable Unavailable HENDERSON, W FINA PA Unavailable Unavailable HENDERSON, W FINA PA Unavailable Unavailable HENDERSON, W FINA PA Unavailable Unavailable HENDERSON, W FINA PA Unavailable Unavailable HENDERSON, W FINA PA Unavailable Unavailable HENDERSON, W FINA PA Unavailable Unavailable HENDERSON, W FINA PA Unavailable Unavailable HENDESRON, W FINA PA Unavailable Unavailable HENDERSON, W FINA PA Unavailable Unavailable HENDERSON, W FINA PA Unavailable Unavailable HENDERSON, W FINA PA Unavailable Unavailable HENDERSON, W FINA PA Unavailable Unavailable HENDERSNO, W FINA PA Unavailable Unavailable HENDERSON, W FINA PA Unavailable Unavailable HENDERSON, W FINA PA Unavailable Unavailable HENDERSON, W FINA PA Unavailable Unavailable HENDERSON, W FINA PA Unavailable Unavailable HENDERSON, W FINA PA Unavailable Unavailable HENDERSON, W FINA PA Unavailable Unavailable HENDERSON, W FINA PA Unavailable Unavailable HENDERSON, W FINA PA Unavailable Unavailable HENDERSON, W FINA PA Unavailable Unavailable HENDERSON, W FINA PA Unavailable Unavailable HENDERSON, W FINA PA Unavailable Unavailable HENDERSON, W FINA PA Unavailable Unavailable HENDERSON, W FINA PA Unavailable Unavailable HENDERSON, W FINA PA Unavailable Unavailable HENDERSON, W FINA PA Unavailable Unavailable HENDERSON, W FINA PA Unavailable Unavailable HENDERSON, W FINA PA Unavailable Unavailable HENDERSON, W FINA PA Unavailable Unavailable HENDERSON, W FINA PA Unavailable Unavailable HENDERSON, W FINA PA Unavailable Unavailable HENDERSON, W FINA PA Unavailable Unavailable HENDERSON, W FINA PA Unavailable Unavailable HENDERSON, W FINA PA Unavailable Unavailable HENDERSON, W FINA PA Unavailable Unavailable HENDERSON, W FINA PA Unavailable Unavailable HENDERSON, W FINA PA Unavailable Unavailable HENDERSON, W FINA PA Unavailable Unavailable HENDERSON, W FINA PA Unavailable Unavailable HENDERSON, W FINA PA Unavailable Unavailable HENDERSON, W FINA PA Unavailable Unavailable HENDERSON, W FINA PA Unavailable Unavailable HENDERSON, W FINA PA Unavailable Unavailable HENDERSON, W FINA PA Unavailable Unavailable HENDERSON, W FINA PA Unavailable Unavailable HENDERSON, W FINA PA Unavailable Unavailable HENDERSON, W FINA PA Unavailable Unavailable HENDERSON, W FINA PA Unavailable Unavailable JESSE ADAMS MD Unavailable Unavailable JESSE ADAMS MD Unavailable Unavailable JESSE ADAMS MD Unavailable Unavailable JESSE ADAMS MD Unavailable Unavailable JESSE ADAMS MD Unavailable Unavailable JESSE ADAMS MD Unavailable Unavailable JESSE ADAMS MD Unavailable Unavailable JESSE ADAMS MD Unavailable Unavailable PHYSICIAN, ER Unavailable Unavailable Re-disclosure Warning The records that you are about to access may contain information from federally-assisted alcohol or drug abuse programs. If such information is present, then the following federally mandated warning applies: This information has been disclosed to you from records protected by federal confidentiality rules (42 CFR part 2). The federal rules prohibit you from making any further disclosure of this information unless further disclosure is expressly permitted by the written consent of the person to whom it pertains or as otherwise permitted by 42 CFR part 2. A general authorization for the release of medical or other information is NOT sufficient for this purpose. The Federal rules restrict any use of the information to criminally investigate or prosecute any alcohol or drug abuse patient.The records that you are about to access may contain highly sensitive health information, the redisclosure of which is protected by Article 27-F of the [facility] Public Health law. If you continue you may have access to information: Regarding HIV / AIDS; Provided by facilities licensed or operated by the [facility] Office of Mental Health; or Provided by the [facility] Office for People With Developmental Disabilities. If such information is present, then the following [facility] mandated warning applies: This information has been disclosed to you from confidential records which are protected by state law. State law prohibits you from making any further disclosure of this information without the specific written consent of the person to whom it pertains, or as otherwise permitted by law. Any unauthorized further disclosure in violation of state law may result in a fine or assisted sentence or both. A general authorization for the release of medical or other information is NOT sufficient authorization for further disc losure. Allergies and Adverse Reactions Type Description Substance Reaction Status Data Source(s ) Drug allergy No Known Allergies No Known Allergies [facility] Encounters Encounter Providers Location Date Indications Data Source(s ) OFFICE/OUTPATIENT VISIT,EST 04/30/2021Outpatient Attender: FINA GABRIEL 04/30/2021 12:03:59 PM EDT [facility] ([facility]) [place] [address] [facility] [address] 04/11/2021 12:00:00 AM EDT [facility] [place] [address] [facility] [address] 04/05/2021 12:00:00 AM EDT eCW1 ([facility]) Outpatient [address] [facility] [place] [address] 04/04/2021 12:00:00 AM EDT eCW1 ([facility]) [place] [address] [facility] [facility] [address] 03/14/2021 12:00:00 AM EDT eCW1 ([facility]) [place] [address] [facility] [facility] [address] 03/07/2021 12:00:00 AM EDT eCW1 ([facility]) OutpatientOFFICE/OUTPATIENT VISIT, EST 03/05/2021 Attender: Navi GABRIEL 03/05/2021 07:00:00 PM EDT [facility]MAK[facility] ([facility]) OutpatientOFFICE/OUTPATIENT VISIT, EST 02/13/2021 Attender: FINA GABRIEL 02/13/2021 05:23:55 PM EDT [facility] ([facility]) [place] [address] [facility] [facility] [address] 02/13/2021 12:00:00 AM EDT eCW1 ([facility] [place] [address] [facility] [facility] [facility] [address] 01/30/2021 12:00:00 AM EDT eCW1 ([facility]) [place] [address] [facility] [facility] [address] 01/29/2021 12:00:00 AM EDT eCW1 ([facility]) Outpatient Attender: FINA GABRIEL 01/28/2021 10:00:0 0 AM EDT R10.9 [facility] R10.9 [place] [address] [facility] [facility] [address] 01/28/2021 12:00:00 AM EDT eCW1 ([facility]) OutpatientOFFICE/OUTPATIENT VISIT, EST 01/12/2021 Attender: FINA GABRIEL 01/12/2021 12:43:39 PM EDT [facility] ([facility]) Emergency Attender: ER PHYSICIAN 12/13/2020 04:42:18 PM E DT Lab [facility] Emergency Attender: JESSE ADAMS MDAttender: ER PHYSICIAN 12/13/2020 03:47:00 PM EDT - 12/13/2020 07:09:00 PM EDT General acute hospital Patient discharged. Emergency Attender: Sergio Abel MD 09/2020 02:05:00 PM EDT - 12/13/2020 03:21:00 PM EDT CSQUC- vomiting,vertigo,sinus congestion [facility] CSQUC- vomiting,vertigo,sinus congestion Patient discharged. OFFICE/OUTPATIENT VISIT, EST 06/26/2020Outpatient Attender: Jewel GABRIEL 06/26/2020 06:03:39 PM EST [facility] ([facility]) OutpatientOFFICE/OUTPATIENT VISIT, EST 06/26/2020 Attender: Jewel GABRIEL 06/26/2020 06:03:39 PM EST [facility] ([facility]) OutpatientOFFICE/OUTPATIENT VISIT, EST 05/30/2020 Attender: FINA GABRIEL 05/30/2020 07:19:34 PM EST [facility] ([facility]) Outpatient Attender: Giselle Rosario MD [facility] 03/30/2020 10:30:00 AM EDT MEDENT ([facility]) Immunizations Vaccine Date Status Description Data Source(s) COVID-19 VACCINE SiOx 12/25/2020 12:00:00 AM EDT completed [facility] Vaccine Series Complete: YESThis Data wa s Submitted to [facility] Via [facility]. COVID-19 VACCINE Pfizer 12/01/2020 12:00:00 AM EDT completed [facility] Vaccine Series Complete: NOThis Data was Submitted to [facility] Via [employer]. Medications Medication Brand Name Start Date Product Form Dose Route Admi nistrative Instructions Pharmacy Instructions Status Indications Reaction Description Data Source(s) doxycycline hyclate 100 MG Oral Capsule DOXYCYCLINE HYCLATE 05/01/2021 12:00:00 AM EDT capsule 28 TAKE ONE CAPSULE BY MOUTH TW O TIMES A DAY FOR 14 DAYS TAKE ONE CAPSULE BY MOUTH TWO TIMES A DAY FOR 14 DAYS SOLD: 05/04/2021 [facility] 100 mg 04/11/2021 12:00:00 AM EDT tablet,delayed release (DR/EC) 20 TAKE ONE TABLET BY MOUTH EVERY 12 HOURS FOR 10 DAYS TAKE ONE TABLET BY MOUTH EVERY 12 HOURS FOR 10 DAYS SOLD: 04/15/2021 [facility] doxycycline hyclate 100 MG Oral Capsule DOXYCYCLINE HYCLATE 04/05/2021 12:00:00 AM EDT capsule 20 TAKE ONE CAPSULE BY MOUTH EV HALIE 12 HOURS TAKE ONE CAPSULE BY MOUTH EVERY 12 HOURS SOLD: 04/06/2021 [facility] doxycycline hyclate 100 MG Delayed Relea se Oral Tablet Doxycycline Hyclate 100 MG Doxycycline Hyclate 100 MG 04/05/2021 12:00:00 AM EDT 1.0 {table t} active Doxycycline Hyclate 100 MG eCW1 ([facility]) doxycycline hyclate 100 MG Delayed Relea se Oral Tablet Doxycycline Hyclate 100 MG Doxycycline Hyclate 100 MG 04/05/2021 12:00:00 AM EDT 1.0 {table t} active Doxycycline Hyclate 100 MG eCW1 ([facility]) Diphenhydramine Hydrochloride 25 MG Oral Tablet diphen hydrAMINE HCl 25 MG diphenhydrAMINE HCl 25 MG 04/05/2021 12:00:00 AM EDT 1.0 {tablet} active diphenhydrAMINE HCl 25 MG eCW1 ( [facility]) Diphenhydramine Hydrochloride 25 MG Oral Tablet diphen hydrAMINE HCl 25 MG diphenhydrAMINE HCl 25 MG 04/05/2021 12:00:00 AM EDT 1.0 {tablet} active diphenhydrAMINE HCl 25 MG eCW1 ( [facility]) Diphenhydramine Hydrochloride 25 MG Oral Tablet diphen hydrAMINE HCl 25 MG diphenhydrAMINE HCl 25 MG 04/05/2021 12:00:00 AM EDT 1.0 {tablet} active diphenhydrAMINE HCl 25 MG eCW1 ( [facility]) doxycycline hyclate 100 MG Delayed Relea se Oral Tablet Doxycycline Hyclate 100 MG Doxycycline Hyclate 100 MG 04/05/2021 12:00:00 AM EDT 1.0 {table t} active Doxycycline Hyclate 100 MG eCW1 ([facility]) 750 mg 04/04/2021 12:00:00 AM EDT tablet 10 TAKE ONE TABLET BY MOUTH EVERY DAY FOR 10 DAYS TAKE ONE TABLET BY MOUTH EVERY DAY FOR 10 DAYS SOLD: [facility] Amoxicillin 875 MG / Clavulanate 125 MG Oral Tablet 87 5-125 mg AMOXICILLIN/POTASSIUM CLAV 03/14/2021 12:00:00 AM EDT tablet 20 TAKE ONE TABLET BY MOUTH EVERY 12 HOURS FOR 10 DAYS TAKE ONE TABLET BY MOUTH EVERY 12 HOURS FOR 10 DAYS SOLD: 03/17/2021 [facility] Amoxicillin 875 MG / Clavulanate 125 MG Oral Tablet Amoxicillin-Pot Clavulanate 875-125 MG Amoxicillin-Pot Clavulanate 875-125 MG 03/07/2021 12:00:00 AM ED T 1.0 {tablet} active Amoxicillin-Pot Cla vulanate 875-125 MG eCW1 ([facility]) Amoxicillin 875 MG / Clavulanate 125 MG Oral Tablet Amoxicillin-Pot Clavulanate 875-125 MG Amoxicillin-Pot Clavulanate 875-125 MG 03/07/2021 12:00:00 AM ED T 1.0 {tablet} active Amoxicillin-Pot Cla vulanate 875-125 MG eCW1 ([facility]) Amoxicillin 875 MG / Clavulanate 125 MG Oral Tablet 87 5-125 mg AMOXICILLIN/POTASSIUM CLAV 03/07/2021 12:00:00 AM EDT tablet 20 TAKE ONE TABLET BY MOUTH EVERY 12 HOURS FOR 10 DAYS TAKE ONE TABLET BY MOUTH EVERY 12 HOURS FOR 10 DAYS SOLD: 03/07/2021 [facility] 137 mcg (0.1 %) 03/06/2021 12:00:00 AM EDT aerosol,spray 30 USE 2 SPRAYS IN EACH NOSTRIL TWO TIMES A DAY USE 2 SPRAYS IN EACH NOSTRIL TWO TIMES A DAY SOLD: 03/07/2021 [facility] Mucinex DM 60 mg-1,200 mg tablet,extended release 12 hr 03/05/2021 12:00:00 AM EDT 1 completed 04/30/2021 ATIF RTMARICH ([facility]) Pseudoephedrine Hydrochloride 30 MG Oral Tablet [Sudaf ed] Sudafed 30 mg tablet Sudafed 30 mg tablet 03/05/2021 12:00:00 AM EDT completed 04/30/2021 COLIN ([facility]) azelastine 137 mcg (0.1 %) nasal spray aerosol 03/05/2021 12:00:00 AM EDT completed 04/30/2021 LENNIE Small ([facility] [place]) Chloraseptic Max Sore Throat 1.5 %-33 % mucosal spray 03/05/2021 12:00:00 AM EDT completed 04/30/2021 ATIF PALMA ([facility]) Prednisone 20 MG Oral Tablet predniSONE 20 mg tablet predniS ONE 20 mg tablet 02/13/2021 12:00:00 AM EDT 2 completed 03/05/2021 COLIN ([facility]) Amoxicillin 875 MG Oral Tablet amoxicillin 875 mg tabl et amoxicillin 875 mg tablet 02/13/2021 12:00:00 AM EDT 1 completed 03/05/2021 COLIN ([facility] [place]) 875 mg 02/13/2021 12:00:00 AM EDT tablet 20 TAKE ONE TABLET BY MOUTH EVERY 12 HOURS FOR 10 DAYS TAKE ONE TABLET BY MOUTH EVERY 12 HOURS FOR 10 DAYS SO LD: 02/13/2021 [facility] 20 mg 02/13/2021 12:00:00 AM EDT tablet 10 TAKE TWO TABLETS BY MOUTH EVERY DAY FOR 5 DAYS TAKE TWO TABLETS BY MOUTH EVERY DAY FOR 5 DAYS SOLD: [facility] Sulfamethoxazole 800 MG / Trimethoprim 1 60 MG Oral Tablet [Bactrim] Bactrim DS 800-160 MG Bactrim DS 800-160 MG 01/29/2021 12:00:00 AM EDT 1.0 {table t} suspended Bactrim DS 800-160 MG eCW1 ( [facility]) Sulfamethoxazole 800 MG / Trimethoprim 1 60 MG Oral Tablet [Bactrim] Bactrim DS 800-160 MG Bactrim DS 800-160 MG 01/29/2021 12:00:00 AM EDT 1.0 {table t} active Bactrim DS 800-160 MG eCW1 ( [facility]) Sulfamethoxazole 800 MG / Trimethoprim 1 60 MG Oral Tablet [Bactrim] Bactrim DS 800-160 MG Bactrim DS 800-160 MG 01/29/2021 12:00:00 AM EDT 1.0 {table t} active Bactrim DS 800-160 MG eCW1 ( [facility]) 800-160 mg 01/29/2021 12:00:00 AM EDT tablet 6 TAKE ONE TABLET BY MOUTH TWICE A DAY TAKE ONE TABLET BY MOUTH TWICE A DAY SOLD: 01/29/2021 [facility] Escitalopram 10 MG Oral Tablet ESCITALOPRAM OXALATE 01/29/2021 1 2:00:00 AM EDT tablet 90 TAKE ONE TABLET BY MOUTH EVERY D AY TAKE ONE TABLET BY MOUTH EVERY DAY SOLD: 01/29/2021 [facility] Sulfamethoxazole 800 MG / Trimethoprim 1 60 MG Oral Tablet [Bactrim] Bactrim DS 800-160 MG Bactrim DS 800-160 MG 01/29/2021 12:00:00 AM EDT 1.0 {table t} suspended Bactrim DS 800-160 MG eCW1 ( [facility]) Sulfamethoxazole 800 MG / Trimethoprim 1 60 MG Oral Tablet [Bactrim] Bactrim DS 800-160 MG Bactrim DS 800-160 MG 01/29/2021 12:00:00 AM EDT 1.0 {table t} active Bactrim DS 800-160 MG eCW1 ( [facility]) NITROFURANTOIN, MACROCRYSTALS 25 MG / Ni trofurantoin, Monohydrate 75 MG Oral Capsule [Macrobid] Macrobid 100 mg capsule Macrobid 100 mg capsule 01/16/2021 12:00:00 AM EDT 1 completed CHARTMIRICH ([facility]) NITROFURANTOIN, MACROCRYSTALS 25 MG / Ni trofurantoin, Monohydrate 75 MG Oral Capsule 100 mg NITROFURANTOIN MONOHYD/M-CRYST 01/16/2021 12:00:00 AM EDT ca psule 10 TAKE ONE CAPSULE BY MOUTH TWICE A DAY TAKE ONE CAPSULE BY MOUTH TWICE A DAY SOLD: 01/16/2021 [facility] Cephalexin 500 MG Oral Capsule CEPHALEXIN 01/15/2021 12:00:00 AM EDT capsule 30 TAKE ONE CAPSULE BY MOUTH THREE TIMES A DAY TAKE ONE C APSULE BY MOUTH THREE TIMES A DAY SOLD: 01/15/2021 [facility] 200 mg 01/15/2021 12:00:00 AM EDT tablet 9 TAKE ONE TABLET BY MOUTH EVERY 8 HOURS TAKE ONE TABLET BY MOUTH EVERY 8 HOURS SOLD: 01/15/2021 [facility] 10 mg 01/12/2021 12:00:00 AM EDT tablet 12 TAKE ONE TABLET BY MOUTH THREE TIMES A DAY TAKE ONE TABLET BY MOUTH THREE TIMES A DAY SOLD: 01/12/2021 [facility] Ketorolac Tromethamine 10 MG Oral Tablet ketorolac 10 mg tablet ketorolac 10 mg tablet 01/12/2021 12:00:00 AM EDT 1 completed 02/13/2021 CHARTMIRICH ([facility] [place]) Tamsulosin hydrochloride 0.4 MG Oral Capsule [Flomax] Flomax 0.4 mg capsule Flomax 0.4 mg capsule 01/12/2021 12:00:00 AM EDT 1 completed 02/13/2021 CHARTMIRICH ([facility] [place]) 0.4 mg 01/12/2021 12:00:00 AM EDT capsule 10 TAKE ONE CAPSULE BY MOUTH AT BEDTIME TAKE ONE CAPSULE BY MOUTH AT BEDTIME SOLD: 01/12/2021 [facility] Ondansetron 4 MG Oral Tablet [Zofran] Zofran 4 mg tablet Zof ran 4 mg tablet 01/12/2021 12:00:00 AM EDT 1 completed 02/13/2021 [facility] ([facility]) 4 mg 01/12/2021 12:00:00 AM EDT tablet 10 TAKE ONE TABLET BY MOUTH THREE TIMES A DAY NEEDED TAKE ONE TABLET BY MOUTH THREE TIMES A DAY NEEDED S OLD: 01/12/2021 [facility] 4 mg 12/13/2020 12:00:00 AM EDT tablet 10 TAKE ONE TABLET BY MOUTH EVERY 6 HOURS NEEDED FOR NAUSEA AND VOMITING TAKE ONE TABLET BY MOUTH EVERY 6 HOURS NEEDED FOR NAUSEA AND VOMITING SOLD: 12/14/2020 [facility] Meclizine Hydrochloride 25 MG Oral Tablet MECLIZINE HCL 12/13/2020 12:00:00 AM EDT tablet 30 TAKE ONE TABLET BY MOUTH FOUR TIMES A DAY NEEDED FOR DIZZINESS TAKE ONE TABLET BY MOUTH FOUR TIMES A DAY NEEDED FO R DIZZINESS SOLD: 12/14/2020 [facility] Terbinafine hydrochloride 10 MG/ML Topic al Cream terbinafine HCL 1 % topical cream terbinafine HCL 1 % topical cream 05/30/2020 12:00:00 AM EST 1 completed 01/12/2021 [facility] ([facility]) Triamcinolone Acetonide 0.25 MG/ML Topic al Cream triamcinolone acetonide 0.025 % topical cream triamcinolone acetonide 0.025 % topical cream 05/30/20 12:00:00 AM EST 1 completed 01/12/2021 ROMY TMAKER ([facility]) 10 mg 03/30/2020 12:00:00 AM EDT tablet 60 TAKE TWO TABLETS BY MOUTH AT BEDTIME TAKE TWO TABLETS BY MOUTH AT BEDTIME SOLD: 04/01/2020 [facility] Amoxicillin 875 MG Oral Tablet amoxicillin 875 mg tabl et amoxicillin 875 mg tablet 09/18/2019 12:00:00 AM EST 1 completed 05/30/2020 [facility] ([facility]) Insurance Providers Payer name Policy type / Coverage type Policy ID Covered green party ID Covered green party's relationship to acosta Policy [place] Plan Information BLUE CROSS [id number] SP [id number] BLUE CROSS [id number] SP [id number] BLUE CROSS [id number] SP [id number] SELF PAY BLUE CROSS [id number] SP [id number] SELF PAY [place]/307 [id number] SP [id number] [place]/307 [id number] SP [id number] EXCELLUS BLUE CROSS BLUE SHIELD HEA [id number] S [id number] ID IDENTIFICATION [id number] Other Insurance [id number] [place]/307 [id number] SP [id number] JEAN-CLAUDE BATESAN [id number] SP [id number] SELF PAY UNAVAILABLE SELF UNAVAILA BLE ANSI-Commercial [id number] ANSI-Commercial [id number] JEAN-CLAUDE SALAS O [id number] STATE INSURANCE FUND [id number] SP [id number] OTHER WORKERS COMPENSATION [id number] SP [id number] Excell[employer] Blue Cross [id number] Blue Cross/Chica eld [id number] Excell[employer] Blue Cross 0 Blue Cross/Shield Excell[employer] Blue Cross 0 Blue Cross/Shield [place] P[place] 302/307 [id number] SP [id number] [place]/307 [id number] SP [id number] [place] 302/307 [id number] SP [id number] ALEX [id number] SP [id number] AMERICHOICE [id number] SP [id number] SELF PAY UNAVAILABLE SP UNAVAILA BLE BCBS [place]/307 [id number] SP [id number] [place] PPO 302/307 [id number] SP [id number] [facility] [place]/307 [id number] SP [id number] ID IDENTIFICATION [id number] Other Insurance [id number] [employer] Blue Cross [id number] Blue Cross/[place] el[place] [id number] [employer] [id number] Blue Cross/[place] eld [id number] Problems, Conditions, and Diagnoses Code Display Name Description Problem Type Effective Dates Data Source(s) R09.89 Other specified symptoms and signs involving the circulatory and respiratory systems R09.89 - Other specified symptoms and si gns involving the circulatory and respiratory systems Diagnosis 12/13/2020 02:05:00 PM E DT [facility] R42 Dizziness and giddiness R42 - Dizziness and giddiness Diagnosis 12/13/2020 02:05:00 PM EDT [facility] R11.10 Vomiting, unspecified R11.10 - Vomiting, unspecified D iagnosis 12/13/2020 02:05:00 PM EDT [facility] J30.9 Allergic rhinitis Allergic rhinitis Problem 05/01/2021 12:00:00 AM EDT [facility] ([facility], ) J34.2 Deviated nasal septum Deviated nasal septum Problem 05/01/2021 12:00:00 AM EDT [facility] ([facility], ) J34.3 Hypertrophy of nasal turbinates Hypertrophy of nasal t urbinates Problem 05/01/2021 12:00:00 AM EDT [facility] ([facility], ) J32.9 Chronic sinusitis Chronic sinusitis Problem 05/01/2021 12:00:00 AM EDT [facility] ([facility], ) R51.9 Headache, unspecified Headache, unspecified (R51.9) [id number] 04/30/2021 12:03:59 PM EDT [facility] ([facility]) R19.7 Diarrhea, unspecified Diarrhea, unspecified (R19.7) [id number] 04/30/2021 12:03:59 PM EDT [facility] ([facility]) [id number] Allergic asthma without status asthmatic us Allergic asthma without status asthmaticus Problem 04/29/2021 12:00:00 AM EDT MEDENT ([facility], ) J32.4 [id number] Chronic pansinusitis Problem 04/11/2021 12:0 0:00 AM EDT eCW1 ([facility]) J32.9 [id number] Chronic sinusitis, unspecified location P roblem 04/04/2021 12:00:00 AM EDT eCW1 ([facility]) J02.9 Acute pharyngitis, unspecified Acute pha ryngitis, unspecified (J02.9) 04/30/2021 [id number] 03/05/2021 07:00:00 PM EDT - 04/30/2021 12:00:00 AM EDT [facility] ([facility]) R05 Cough Cough (R05) 03/05/2021 [id number] 03/05/2021 07: 00:00 PM EDT [facility] ([facility]) H66.91 Acute right otitis media Otitis media, u nspecified, right ear (H66.91) 03/05/2021 [id number] 02/13/2021 05:23:55 PM EDT - 03/05/2021 12:00:00 AM EDT [facility] ([facility]) J01.90 Acute sinusitis, unspecified Acute sinus itis, unspecified (J01.90) 03/05/2021 [id number] 02/13/2021 05:23:55 PM EDT - 03/05/2021 12:00:00 AM EDT [facility] ([facility]) R09.81 Nasal congestion Nasal congestion (R09.81) 02/13/2021 [id number] 02/13/2021 05:23:55 PM EDT [facility] ([facility]) Z20.828 Contact with and (suspected) exposure to other viral communicable diseases Contact with and (suspected) exposure to other viral communicable diseases (Z20.828) 02/13/2021 [id number] 02/13/2021 05:23:55 PM EDT [facility] ([facility]) R10.9 Unspecified abdominal pain Unspecified abdominal pain (R10.9) 02/13/2021 [id number] 01/12/2021 12:43:39 PM EDT - 02/13/2021 12:00:00 AM ED T [facility] ([facility]) R30.0 Dysuria Dysuria (R30.0) 02/13/2021 [id number] 09/2020 12:43:39 PM EDT - 02/13/2021 12:00:00 AM EDT [facility] ([facility]) R31.9 Hematuria, unspecified Hematuria, unspecified (R31.9) 02/13/2021 [id number] 01/12/2021 12:43:39 PM EDT - 02/13/2021 12:00:00 AM EDT [facility] ([facility]) R05 Cough Cough (R05) 01/12/2021 [id number] 06:03:39 PM EST - 01/12/2021 12:00:00 AM EDT [facility] ([facility]) R09.81 Nasal congestion Nasal congestion (R09.81) 01/12/2021 [id number] 06/26/2020 06:03:39 PM EST - 01/12/2021 12:00:00 AM EDT [facility] ([facility]) J02.9 Acute pharyngitis, unspecified Acute pha ryngitis, unspecified (J02.9) 01/12/2021 [id number] 06/26/2020 06:03:39 PM EST - 01/12/2021 12:00:00 AM EDT [facility] ([facility]) Z20.828 Contact with and (suspected) exposure to other viral communicable diseases Contact with and (suspected) exposure to other viral communicable diseases (Z20.828) 01/12/2021 [id number] 06/26/2020 06:03:39 PM EST - 01/12/2021 12:00:00 AM EDT [facility] ([facility]) R21 Rash and other nonspecific skin eruption Rash and other nonspecific skin eruption (R21) 06/26/2020 [id number] 05/30/2020 07:19:34 PM EST - 06/26/2020 12:00:00 AM EST [facility] ([facility]) R30.0 Dysuria Dysuria (R30.0) 06/26/2020 [id number] 07/30/2019 07:19:34 PM EST - 06/26/2020 12:00:00 AM EST [facility] ([facility]) R35.0 Frequency of micturition Frequency of micturitio n (R35.0) 06/26/2020 [id number] 05/30/2020 07:19:34 PM EST - 06/26/2020 12:00:00 AM ES T [facility] ([facility]) R68.84 Jaw pain Jaw pain (R68.84) 05/30/2020 [id number] 09/18/2019 12:02:38 PM EDT - 05/30/2020 12:00:00 AM EST [facility] ([facility]) Surgeries/Procedures Procedure Description Date Indications Data Source(s) INFECTIOUS AGENT DETECTION COMPLETED WITHIN 2 DAYS 04/30/2021 12:00:00 AM EDT [facility] ([facility]) COVID PCR 04/30/2021 04/30/2021 12:00:00 AM EDT [facility] ([facility]) INFECTIOUS AGENT DETECTION COMPLETED WITHIN 2 DAYS 03/05/2021 03/05/2021 12:00:00 AM EDT [facility] ([facility]) COVID PCR 03/05/2021 03/05/2021 12:00:00 AM EDT CH[facility] ([facility]) INFECTIOUS AGENT DETECTION COMPLETED WITHIN 2 DAYS 02/13/2021 02/13/2021 12:00:00 AM EDT [facility]) COVID PCR 02/13/2021 02/13/2021 12:00:00 AM EDT [facility] ([facility]) SVC PRV OFFICE REG SCHEDD EVN WKEND/HOLIDAY HRS 2020 12:00:00 AM EDT [facility] ([facility]) URNLS DIP STICK/TABLET RGNT NON-AUTO W/O MICRSCP 01/12 12:00:00 AM EDT CHART[facility] ([facility]) Electrocardiogram Interpretation & Report Only 021 12:00:00 AM EDT [facility] ([facility]) INFECTIOUS AGENT ANTIGEN DETECTION 06/26/2020 020 12:00:00 AM EST [facility] ([facility]) C PRV OFFICE REG SCHEDD EVN WKEND/HOLIDAY HRS 2019 12:00:00 AM EST [facility] ([facility]) URNLS DIP STICK/TABLET RGNT NON-AUTO W/O MICRSCP 05/30 12:00:00 AM EST [facility] ([facility]) Results ID Date Data Source [id number] 04/30/2021 12:00:00 AM EDT [facility] Name Value Range Interpretation Code Description Data Lorraine rce(s) Supporting Document(s) PCR NEGATIVE [facility] This lab was ordered by [facility] are and reported by [facility]. ID Date Data Source [id number] 06/26/2020 12:00:00 AM EST [facility] Name Value Range Interpretation Code Description Data Lorraine rce(s) Supporting Document(s) SARS-CoV2 Rapid Antigen [facility] This lab was ordered by [facility] C are and reported by [facility]. ID Date Data Source [id number] 03/07/2021 06:26:00 AM EDT [facility] Name Value Range Interpretation Code Description Data Lorraine rce(s) Supporting Document(s) SARS COVID ANTIGEN NEGATIVE [facility] This lab was ordered by STEPHON espino nd reported by [facility]. ID Date Data Source [place] COVID AG (Point of Care) 03/07/2021 12:00:00 AM EDT eC W1 ([facility]) Name Value Range Interpretation Code Description Data Lorraine rce(s) Supporting Document(s) NEGATIVE NEGATIVE [place] COVID ANTIGEN eCW1 ([facility]) ID Date Data Source [id number] 02/13/2021 12:00:00 AM EDT [facility] Name Value Range Interpretation Code Description Data Lorraine rce(s) Supporting Document(s) PCR NEGATIVE [facility] This lab was ordered by [facility] are and reported by [facility]. ID Date Data Source URINE CULTURE 01/29/2021 12:00:00 AM EDT eCW1 ([facility]) Name Value Range Interpretation Code Description Data Lorraine rce(s) Supporting Document(s) URINE CULTURE eCW1 ([facility]) ID Date Data Source UA URINALYSIS 01/29/2021 12:00:00 AM EDT eCW1 ([facility]) Name Value Range Interpretation Code Description Data Lorraine rce(s) Supporting Document(s) UA URINALYSIS eCW1 ([facility]) ID Date Data Source [id number] 01/16/2021 08:36:53 AM EDT [facility] - CORE SPECIMEN DESCRIPTION URINE, COLLE CTION METHOD NOT SPECIFIEDCULTURE RESULTS >10,000 TO <100,000 CFU/ML ESCHERICHIA COLI IMPORTANT NOTE FOR COMPLICATED INFECTIONS SUCH UROSEPSIS CEFAZOLIN SHOULD HAVE A JOHAN OF LESS THAN OR EQUAL TO 2 TO BE CONSIDERED SUSCEPTIBLE. CONTACT MICROBIOLOGY FOR FURTHER TESTING IF WARRANTED.THE URINE COLLECTION TUBE WAS NOT FILLED TO THE MINIMUM LINE. THESPECIMEN WAS CULTURED, BUT THE PRESERVATIVE MAY BE INHIBITORY WHENLESS THAN THE MINIMUM FILL OF URINE IS OBTAINED. REPORT STATUS FINAL 01/16/2021ORGANISM ESCHERICHIA COLIMETHOD MICAMIKACIN <=2 SUSCEPTIBLEAMOXICILLIN/CLAVULANIC AC <=2/1 SUSCEPTIBLEAMPICILLIN <=2 SUSCEPTIBLE ISOLATES SUSCEPTIBLE TO AMPICILLIN ARE ALSO SUSCEPTIBLE TO AMOXICILLIN.CEFAZOLIN <=4 SUSCEPTIBLE FOR UNCOMPLICATED UTI'S,CEFAZOLIN JOHAN RESULTS LESS THAN OR EQUAL TO 16 MCG/ML PREDICT SUSCEPTIBILITY OF THE FOLLOWING ORAL CEPHALOSPORINS:CEFACLOR,CEFDINIR, CEFPODOXIME,CEFPROZIL,CEFUROXIME AND CEPHALEXIN.CEFEPIME <=1 SUSCEPTIBLECEFOXITIN <=4 SUSCEPTIBLECEFTAZIDIME <=1 SUSCEPTIBLECEFTRIAXONE <=1 SUSCEPTIBLECIPROFLOXACIN <=0.25 SUSCEPTIBLEGENTAMICIN <=1 SUSCEPTIBLELEVOFLOXACIN <=0.12 SUSCEPTIBLEMEROPENEM <=0.25 SUSCEPTIBLENITROFURANTOIN <=16 SUSCEPTIBLEPIPERACILLIN/TAZOBACTAM <=4 SUSCEPTIBLETETRACYCLINE <=1 SUSCEPTIBLE ISOLATES SUSCEPTIBLE TO TETRACYCLINE ARE ALSO SUSCEPTIBLE TO DOXYCYCLINE AND MINOCYCLINE.TOBRAMYCIN <=1 SUSCEPTIBLETRIMETH/SULFA <=1/19 SUSCEPTIBLEERTAPENEM <=0.5 SUSCEPTIBLE Name Value Range Interpretation Code Description Data Lorraine rce(s) Supporting Document(s) ID Date Data Source [id number] 01/12/2021 12:00:00 AM EDT CHARTMAKER ([facility]) Name Value Range Interpretation Code Description Data Lorraine rce(s) Supporting Document(s) Glucose [Mass/volume] in Serum or Plasma Negative Glucose: Negative 01/12/2021 [facility]) ID Date Data Source [id number] 01/12/2021 12:00:00 AM EDT CHARTMAKER ([facility]) Name Value Range Interpretation Code Description Data Lorraine rce(s) Supporting Document(s) Bilirubin.total [Mass/volume] in Serum or Plasma Negative Bilirubin: Negative 01/12/2021 [facility]) ID Date Data Source [id number] 01/12/2021 12:00:00 AM EDT CH[facility]MAK[facility] ([facility]) Name Value Range Interpretation Code Description Data Lorraine rce(s) Supporting Document(s) Ketone Negative Ketone: Negative 01/12/2021 [facility] RTMAKER [facility]) ID Date Data Source [id number] 01/12/2021 12:00:00 AM EDT CH[facility]MAK[facility] ([facility]) Name Value Range Interpretation Code Description Data Lorraine rce(s) Supporting Document(s) Specific gravity of Urine 1.015 Specific G ravity: 1.015 01/12/2021 [facility] ([facility]) ID Date Data Source [id number] 01/12/2021 12:00:00 AM EDT [facility]MAKER ([facility]) Name Value Range Interpretation Code Description Data Lorraine rce(s) Supporting Document(s) Hemoglobin [Presence] in Urine Hemol +++ Blood (Urine): Hemol +++ 01/12/2021 [facility] ([facility]) ID Date Data Source [id number] 01/12/2021 12:00:00 AM EDT [facility] ([facility]) Name Value Range Interpretation Code Description Data Lorraine rce(s) Supporting Document(s) pH of Blood 5.5 pH: 5.5 01/12/2021 [facility] ([facility]) ID Date Data Source [id number] 01/12/2021 12:00:00 AM EDT [facility] ([facility]) Name Value Range Interpretation Code Description Data Lorraine rce(s) Supporting Document(s) Protein [Mass/volume] in Serum or Plasma Negative Protein: Negative 01/12/2021 [facility] ([facility]) ID Date Data Source [id number] 01/12/2021 12:00:00 AM EDT [facility] ([facility]) Name Value Range Interpretation Code Description Data Lorraine rce(s) Supporting Document(s) Urobilinogen [Mass/volume] in Urine 0.2 mg/dL Urobilinogen: 0.2 mg/dL 01/12/2021 [facility] ([facility]) ID Date Data Source [id number] 01/12/2021 12:00:00 AM EDT [facility] ([facility]) Name Value Range Interpretation Code Description Data Lorraine rce(s) Supporting Document(s) Nitrite [Presence] in Urine Negative Nitrite: Negative 01/12/2021 [facility] ([facility]) ID Date Data Source [id number] 01/12/2021 12:00:00 AM EDT CH[facility]MAKER ([facility]) Name Value Range Interpretation Code Description Data Lorraine rce(s) Supporting Document(s) Leukocytes [#/volume] in Blood Moderate Leuko cytes: Moderate 01/12/2021 [facility] ([facility]) ID Date Data Source [id number] 12/13/2020 05:31:11 PM EDT [facility] Name Value Range Interpretation Code Description Data Lorraine rce(s) Supporting Document(s) URINE WBC (0-5) [facility] URINE RBC (0-2) [facility] EPITHELIAL CELLS 2+ [HPF] [facility] BACTERIA 2+ [HPF] [facility] ID Date Data Source [id number] 12/13/2020 05:16:57 PM EDT [facility] Name Value Range Interpretation Code Description Data Lorraine rce(s) Supporting Document(s) COLOR [facility] PERFORMED AT [address] [place] [address] APPEARANCE [facility] SPEC GRAV URINE 1.010 (1.003-1.030) [facility] PH URINE 6.0 (5.0-7.5) [facility] LEUK ESTERASE (NEG) A [facility] NITRITE URINE (NEG) [facility] PROTEIN URINE (NEG) [facility] GLUCOSE URINE (NEG) [facility] KETONE URINE (NEG) [facility] UROBILINOGEN 0.2 mg/dL (0-1.0) [facility] BILIRUBIN URINE (NEG) [facility] BLOOD/HGB URINE (NEG) [facility] ID Date Data Source [id number] 12/14/2020 03:08:34 PM EDT [facility] SPECIMEN DESCRIPTION URINE, COLLE CTION METHOD NOT SPECIFIEDCULTURE RESULTS NO GROWTHREPORT STATUS FINAL 12/14/2020 Name Value Range Interpretation Code Description Data Lorraine rce(s) Supporting Document(s) ID Date Data Source [id number] 12/13/2020 05:28:40 PM EDT [facility] Name Value Range Interpretation Code Description Data Lorraine rce(s) Supporting Document(s) HCG, QUAL. SERUM (NEG) [facility] ID Date Data Source [id number] 12/13/2020 04:56:26 PM EDT [facility] Name Value Range Interpretation Code Description Data Lorraine rce(s) Supporting Document(s) LIPASE 103 U/L (65-230) [facility] ID Date Data Source [id number] 12/13/2020 04:56:26 PM EDT [facility] Name Value Range Interpretation Code Description Data Lorraine rce(s) Supporting Document(s) TOTAL PROTEIN 7.4 g/dL (6.4-8.2) [facility] ALBUMIN 3.9 g/dL (3.5-4.6) [facility] GLOBULIN 3.5 g/dL (2.7-4.3) [facility] ALB/GLOB RATIO 1.1 RATIO [facility] BILIRUBIN,TOTAL 0.5 mg/dL (0.0-1.0) [facility] PLEASE NOTE:Total bilirubin results may be falselyelevated in patients taking Eltrombopag. BILIRUBIN,CONJUGATED <0.1 mg/dL (0.0-0.3) [facility] BILIRUBIN,UNCONJ. (0.0-0.7) [facility] ALKALINE PHOSPHATASE 108 U/L (45-117) [facility] AST (SGOT) 30 U/L (11-39) [facility] ALT (SGPT) 34 U/L (12-78) [facility] ID Date Data Source [id number] 12/13/2020 04:56:26 PM EDT [facility] Name Value Range Interpretation Code Description Data Lorraine rce(s) Supporting Document(s) SODIUM 141 mmol/L (136-145) [facility] POTASSIUM 4.2 mmol/L (3.6-5.2) [facility] CHLORIDE 107 mmol/L (100-108) [facility] CO2 30 mmol/L (22-31) [facility] ANION GAP 4 mmol/L (7-16) L [facility] UREA NITROGEN 19 mg/dL (7-24) [facility] CREATININE 0.73 mg/dL (0.60-1.00) [facility] BUN/CREAT RATIO 26.0 RATIO (10.0-20.0) H [facility] GLUCOSE 87 mg/dL (70-99) [facility] CALCIUM 9.4 mg/dL (8.4-10.2) [facility] GFR >60 ml/min/1.73m2 (>59) [facility] GFR ( AMER) >60 ml/min/1.73m2 (>59) [facility] GFR INTERPRETATION [facility] --NORMAL KIDNEY FUNCTION OR MILD DISEASE - GFR >OR= 60CHRONIC KIDNEY DISEASE - GFR 15 - 59RENAL FAILURE - GFR <15 Est. GFR calculation based on the MDRDstudy equation, which assumes a steadystate for creatinine. Est. GFR should notbe used for medication dosing. ID Date Data Source [id number] 12/13/2020 04:42:18 PM EDT [facility] Name Value Range Interpretation Code Description Data Lorraine rce(s) Supporting Document(s) WBC 5.2 10*3/uL (4.1-11.0) [facility] RBC 4.55 10*6/uL (4.00-5.40) [facility] HGB 12.7 g/dL (12.0-16.0) [facility] HCT 39.0 % (36.0-47.0) [facility] MCV 85.8 fL (80.0-95.0) [facility] MCH 27.9 pg (27.0-32.0) [facility] MCHC 32.6 g/dL (32.0-36.0) [facility] RDW 14.1 % (10.5-14.5) [facility] PLT 250 10*3/uL (150-450) [facility] MPV 9.1 fL (7.1-10.7) [facility] NEUT % 55.4 % (35.0-75.0) [facility] LYMPH % 30.5 % (16.0-52.0) [facility] MONO % 7.3 % (0.0-8.0) [facility] EOS % 5.5 % (0.0-5.0) H [facility] BASO % 1.3 % (0.0-4.0) [facility] NEUT # 2.9 10*3/uL (1.8-7.7) [facility] LYMPH # 1.6 10*3/uL (1.2-4.8) [facility] MONO # 0.4 10*3/uL (0.0-0.8) [facility] Eosinophils [#/volume] in Blood by Automated count 0.3 10*3/uL (0.0-0 .5) [facility] BASO # 0.1 10*3/uL (0.0-0.2) [facility] ID Date Data Source [id number] 12/13/2020 03:53:00 [place] [address] HEALTH INFORMATION MANAGEMENT ED/UC Physician Report : [id number] Signed Patient: Janet Mcneil Acct:[id number] Unit: MR [id number] : 1985 Arrival Date: 12/13/20 Age/Sex: 35 / F Arrival Time: 1405 Copies to: Sharon Sears Headache HPI/ROS General Chief Complaint: Headache Stated Complaint: CSQUC- vomiting,vertigo,sinus congestion Stated Complaint: CSQUC- vomiting,vertigo,sinus congestion Source: Patient and I have reviewed available Ancillary/nursing staff documentation Mode of arrival: Ambulatory Limitations: Reports No limitations History of Present Illness Initial Comments: Patient presents today explaining that last night she had 3 bouts of diarrhea, then about 10 bouts of vomiting. Patient denies seeing any blood in vomitus or stool. Patient states the stool was not clear liquid. Patient states that she woke up this morning with a lot of dizziness. Patient states that she has been feeling weak and since 145 her so having visual changesin the right eye-blurry vision. Patient states she normally has normal vision in both eyes but now she is blurry in the right eye. Patient states that she used to have migraines as a child but they did not feel this way. Patient states she does not have a headache at this time, is not light sensitive and is not sound sensitive the way she was with her migraines. Patient states she has nothad migraines in long time. Patient does not believe that she can be due to the fact that she has had a hysterectomy. Patient states her father has had a stroke. Patient states she herselfhad stroke symptoms several years ago but no abnormality was found at the hospital. ROS: Denies fevers, chills, eye pain, discharge denies, denies earache, epistaxis, sinus congestion, sore throat but endorses nasal congestion, blurry vision the right eye, denies chest pain, palpitations, syncope, shortness of breath, endorses mild cough, nausea, vomiting, diarrhea, denies belly pain, dysuria, headache but endorses dizziness, weakness, denies neck pain, back pain, bruising, itching, laceration, rash, an xiety, depression. 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[employer] [place] Lives with: Reports Family PMH/PSH Medical History (Updated 12/13/20 @ 16:00 by NERY Arriaga) Migraines Family History (Updated 12/13/20 @ 15:56 by NERY Arriaga) Other CHF (congestive heart failure) Migraine Stroke Physical Exam Physical Exam Physical Exam: 35-year-old white female, somewhat ill-appearing, lying down on examination table, complaining of nausea, speaking complete sentences General appearance: Alert Head Head Exam: Atraumatic and Normcephalic Eye Eye Exam: EOMI, Conjunctiva normal, Sclera normal and WILL ENT ENT Exam: Dentition without abscess, External ear normal, Nose normal, No sublingual edema/erythema,No tongue elevation, Throat normal and Tonsil normal; negative Tympanic membrane normal (Right TM erythematous and bulging. Left TM intact. Canals intact bilat.) Neck Neck Exam: Full ROM, Supple and Trachea Midline Cardiac Cardiac: Present: Regular rate and rhythm Lung/Chest Lung/Chest Exam: Clear and Normal Exchange Abdomen Abdominal Exam: Bowel sounds normal, Soft, Nondistended, Nontender and No guarding Back Back Exam: Full ROM Upper Extremity Upper Extremity Exam: Full ROM Lower Extremity Lower Extermity Normal: Full ROM Neuro Neuro Normal: Alert, Oriented x 3, CN 2-12 normal, Finger to nose normal, Fluent speech, Gait normaland Strength 5/5 all extremities Psych Psych Normal: Normal Affect Skin Skin exam: Dry, Intact, Hypoluxo and Warm Course Vital Signs Vital signs: Vital Signs 12/13/20 14:27 Temperature 98.2 F Pulse Rate 67 Respiratory Rate 20 Blood Pressure 124/72 O2 Sat by Pulse Oximetry 100 Medical Decision Making/CCT Medication/Allergies Review Medication/Allergies Review Home Medication and Allergy review: I reviewed patients allergies, home medications, and new prescriptions Blood Pressure Blood pressure: Pt's BP is prehypertensive range (>120/80), pt advised follow up w/PCP Medical Decision Making Medical Decision Making: At this time patient appears to be neurologically intact however she does state that she has blurry vision in the right eye. Advising patient go to the hospital for stroke evaluation. Patient would like to go to [facility] by ambulance. We called [facility] and spoke to Dora,patient care secretary. Discharge Plan Disposition Clinical Impression: Visual changes, Acute right otitis media, Nausea vomiting and diarrhea Provider stated Dispo: Transferred Condition: Fair Prescriptions: No Action No Known Home Meds RF: 0 Stand Alone Forms: Portal Instructions Patient agreeable to discharge: Patient/Guardian understands and is agreeable to discharge plan Provider in triage note Vital Signs Vital Signs: Vital Signs (Last 8 Hours) Temp Pulse Resp BP Pulse Ox 12/13/20 14:27 98.2 F 67 20 124/72 100 Date/Time <<Signature on File>> Initializing User: Williams GABRIEL 12/13/20 1553 Signed by: Williams García 12/13/20 1600 Sergio Abel MD 12/13/202034 Name Value Range Interpretation Code Description Data Lorraine rce(s) Supporting Document(s) ID Date Data Source [id number] 06/27/2020 06:51:00 PM EST [facility] Name Value Range Interpretation Code Description Data Lorraine rce(s) Supporting Document(s) SARS-CoV-2 by KRYSTLE [facility] This lab was ordered by [facility] and reported by [facility]. ID Date Data Source [id number] 06/30/2020 01:38:48 AM EST [facility] Name Value Range Interpretation Code Description Data Lorraine rce(s) Supporting Document(s) SARS COV2 SOURCE [facility] SARS COV 2 BY PCR [facility] Not Detected INTERPRETIVE INFORMATION: S ARS-CoV-2 (COVID-19) by KRYSTLE This test should be ordered for the detection of the 2019 novel coronavirus SARS-CoV-2 in individuals who meet SARS-CoV-2 clinical and/or epidemiological criteria. The Coronavirus SARS-CoV-2 (COVID-19) by nucleic acid amplification test is for in vitro diagnostic use under the FDA Emergency Use Authorization (EUA) for US laboratories certified under CLIA to perform high complexity tests. This test has not been FDA cleared or approved. In compliance with this authorization, please visit [email or web address] for more information and to access the applicable information sheets. Not Detected results do not rule out the presence of PCR inhibitors in the patient specimen or assay specific nucleic acid in concentrations below the level of detection by the assay. Detected results are indicative of the presence of SARS-CoV-2 RNA. Due to the complexity of nucleic acid amplification methodologies, there may be a risk of false positive results. Clinical correlation with patient history and other diagnostic information is necessary to determine patient infection status. Reliable results are dependent on adequate specimen collection, transport, storage, and handling. Performed by [facility], [address] [place] [id number] [email or web address], Camilla Solomon MD, Lab. Director ID Date Data Source [id number] 06/26/2020 12:00:00 AM EST [facility] ([facility]) Name Value Range Interpretation Code Description Data Lorraine rce(s) Supporting Document(s) SARS COV2 SOURCE NASOPHARYNGEAL SARS COV2 SOURCE: NASOPHARYNGEAL 06/26/2020 [facility] ([facility]) ID Date Data Source [id number] 05/30/2020 12:00:00 AM EST [facility] ([facility]) Name Value Range Interpretation Code Description Data Lorraine rce(s) Supporting Document(s) Glucose [Mass/volume] in Serum or Plasma Negative Glucose: Negative 05/30/2020 [facility] ([facility]) ID Date Data Source [id number] 05/30/2020 12:00:00 AM EST [facility] ([facility]) Name Value Range Interpretation Code Description Data Lorraine rce(s) Supporting Document(s) Bilirubin.total [Mass/volume] in Serum or Plasma Negative Bilirubin: Negative 05/30/2020 [facility] ([facility]) ID Date Data Source [id number] 05/30/2020 12:00:00 AM EST [facility] Name Value Range Interpretation Code Description Data Lorraine rce(s) Supporting Document(s) Ketone Negative Ketone: Negative 020 [facility] ([facility]) ID Date Data Source [id number] 05/30/2020 12:00:00 AM EST [facility] ([facility]) Name Value Range Interpretation Code Description Data Lorraine rce(s) Supporting Document(s) Specific gravity of Urine 1.030 Specific G ravity: 1.030 05/30/2020 [facility] ([facility]) ID Date Data Source [id number] 05/30/2020 12:00:00 AM EST [facility] ([facility]) Name Value Range Interpretation Code Description Data Lorraine rce(s) Supporting Document(s) Hemoglobin [Presence] in Urine Negative Blood (Urine): Negative 05/30/2020 [facility] ([facility]) ID Date Data Source [id number] 05/30/2020 12:00:00 AM EST [facility] Name Value Range Interpretation Code Description Data Lorraine rce(s) Supporting Document(s) pH of Blood 6.0 pH: 6.0 05/30/2020 [facility] ER ([facility]) ID Date Data Source [id number] 05/30/2020 12:00:00 AM EST [facility] ([facility]) Name Value Range Interpretation Code Description Data Lorraine rce(s) Supporting Document(s) Protein [Mass/volume] in Serum or Plasma Negative Protein: Negative 05/30/2020 [facility] ([facility]) ID Date Data Source [id number] 05/30/2020 12:00:00 AM EST [facility] ([facility]) Name Value Range Interpretation Code Description Data Lorraine rce(s) Supporting Document(s) Urobilinogen [Mass/volume] in Urine 0.2 mg/dL Urobilinogen: 0.2 mg/dL 05/30/2020 [facility] ([facility]) ID Date Data Source [id number] 05/30/2020 12:00:00 AM EST [facility] ([facility]) Name Value Range Interpretation Code Description Data Lorraine rce(s) Supporting Document(s) Nitrite [Presence] in Urine Negative Nitrite: Negative 05/30/2020 [facility] ([facility]) ID Date Data Source [id number] 05/30/2020 12:00:00 AM EST [facility] ([facility]) Name Value Range Interpretation Code Description Data Lorraine rce(s) Supporting Document(s) Leukocytes [#/volume] in Blood Negative Leuko cytes: Negative 05/30/2020 [facility] ([facility]) Procedure Social History Code Duration Value Status Description Data Source(s ) Smoking 04/11/2021 12:00:00 AM EDT Former Smoker completed Former Smoker eCW1 ([facility]) Smoking 04/05/2021 12:00:00 AM EDT Former Smoker completed Former Smoker eCW1 ([facility]) Smoking 04/05/2021 12:00:00 AM EDT Former Smoker completed Former Smoker eCW1 ([facility]) Smoking 03/14/2021 12:00:00 AM EDT Former Smoker completed Former Smoker eCW1 ([facility]) Smoking 03/07/2021 12:00:00 AM EDT Former Smoker completed Former Smoker eCW1 ([facility]) Smoking 03/05/2021 12:00:00 AM EDT Never smoker completed Never s moker [facility] ([facility]) Smoking 02/13/2021 12:00:00 AM EDT Never smoker completed Never s moker [facility] ([facility]) Smoking 01/29/2021 12:00:00 AM EDT Former Smoker completed Former Smoker eCW1 ([facility]) Smoking 01/29/2021 12:00:00 AM EDT Former Smoker completed Former Smoker eCW1 ([facility]) Smoking 01/29/2021 12:00:00 AM EDT Former Smoker completed Former Smoker eCW1 ([facility]) Smoking 12/13/2020 04:29:00 PM EDT Denies Ever Smoked complete d Denies Ever Smoked [facility] Smoking 06/26/2020 12:00:00 AM EST Smoker, current status unkn own completed Smoker, current status unknown [facility] ([facility]) Vital Signs ID Date Data Source UNK Name Value Range Interpretation Code Description Data Source(s) Heart rate 96 /min 96 /min [facility] ([facility]) Diastolic blood pressure 78 mm[Hg] 78 mm[Hg] [facility] ([facility]) Systolic blood pressure 104 mm[Hg] 104 mm[Hg] [facility] Oxygen saturation in Arterial blood by Pulse oximetry 99 % 99 % [facility] ([facility]) Body height 65.75 [in_i] 65.75 [in_i] [facility] ([facility]) 5'5.75" Body weight 222.00 [lb_av] 222.00 [lb_av] [facility] ([facility]) Body mass index (BMI) [Ratio] 36.1 kg/m2 36.1 k g/m2 [facility] ([facility]) [place] body weight 125 [lb_av] 125 [lb_av] [facility] ([facility]) Body weight 100.699 kg 100.699 kg [facility] ([facility]) Body surface area Derived from formula 2.09 m2 2.09 m2 [facility] ([facility]) Body weight 220 [lb_av] 220 [lb_av] eCW1 ([facility]) Body height 65.25 [in_i] 65.25 [in_i] eCW1 ([facility]) Body mass index (BMI) [Ratio] 36.33 kg/m2 36.33 kg/m2 eCW1 ([facility]) Heart rate 96 /min 96 /min eCW1 ([facility]) Respiratory rate 18 /min 18 /min eCW1 ([facility]) Body temperature 97.0 [degF] 97.0 [degF] eCW1 ( [facility]) Systolic blood pressure 112 mm[Hg] 112 mm[Hg] e CW1 ([facility]) Diastolic blood pressure 70 mm[Hg] 70 mm[Hg] eCW1 ([facility]) Body weight 221 [lb_av] 221 [lb_av] eCW1 ([facility]) Body height 65.25 [in_i] 65.25 [in_i] eCW1 ([facility]) Body mass index (BMI) [Ratio] 36.49 kg/m2 36.49 kg/m2 eCW1 ([facility]) Heart rate 94 /min 94 /min eCW1 ([facility]) Respiratory rate 18 /min 18 /min eCW1 ([facility]) Body temperature 96.1 [degF] 96.1 [degF] eCW1 ( [facility]) Systolic blood pressure 110 mm[Hg] 110 mm[Hg] e CW1 ([facility]) Diastolic blood pressure 62 mm[Hg] 62 mm[Hg] eCW1 ([facility]) Body weight 220 [lb_av] 220 [lb_av] eCW1 ([facility]) Body height 65.25 [in_i] 65.25 [in_i] eCW1 ([facility]) Body mass index (BMI) [Ratio] 36.33 kg/m2 36.33 kg/m2 eCW1 ([facility]) Heart rate 85 /min 85 /min eCW1 ([facility]) Respiratory rate 18 /min 18 /min eCW1 ([facility]) Body temperature 96.5 [degF] 96.5 [degF] eCW1 ( [facility]) Systolic blood pressure 122 mm[Hg] 122 mm[Hg] e CW1 ([facility]) Diastolic blood pressure 80 mm[Hg] 80 mm[Hg] eCW1 ([facility]) Body weight 220 [lb_av] 220 [lb_av] eCW1 ([facility]) Body height 65.25 [in_i] 65.25 [in_i] eCW1 ([facility]) Body mass index (BMI) [Ratio] 36.33 kg/m2 36.33 kg/m2 eCW1 ([facility]) Heart rate 112 /min 112 /min eCW1 ([facility]) Respiratory rate 18 /min 18 /min eCW1 ([facility]) Body temperature 98.3 [degF] 98.3 [degF] eCW1 ( [facility]) Systolic blood pressure 132 mm[Hg] 132 mm[Hg] e CW1 ([facility]) Diastolic blood pressure 78 mm[Hg] 78 mm[Hg] eCW1 ([facility]) Body height 65 [in_i] 65 [in_i] [facility] ([facility]) Body weight 220 [lb_av] 220 [lb_av] [facility] ([facility]) Body mass index (BMI) [Ratio] 36.2356713242759 kg/m2 36.5365643689651 kg/m2 [facility] ([facility]) Oxygen saturation in Arterial blood by Pulse oximetry 99 % 99 % [facility] ([facility]) Inhaled oxygen concentration 21 % 21 % [facility] ([facility]) Body temperature 97.9 [degF] 97.9 [degF] [facility] ([facility]) Heart rate 74 /min 74 /min [facility] ([facility]) Respiratory rate 16 /min 16 /min [facility] ([facility]) Systolic blood pressure 128 mm[Hg] 128 mm[Hg] C [facility] ([facility]) Diastolic blood pressure 82 mm[Hg] 82 mm[Hg] [facility] ([facility]) Body temperature 98.6 [degF] 98.6 [degF] [facility] ([facility]) Heart rate 76 /min 76 /min [facility] ([facility]) Systolic blood pressure 124 mm[Hg] 124 mm[Hg] C [facility] ([facility]) Diastolic blood pressure 82 mm[Hg] 82 mm[Hg] [facility] ([facility]) Body height 65 [in_i] 65 [in_i] [facility] ([facility]) Oxygen saturation in Arterial blood by Pulse oximetry 99 % 99 % [facility] ([facility]) Body weight 219.125 [lb_av] 219.125 [lb_av] 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[facility]) Body mass index (BMI) [Ratio] 36.131144831215 kg/m2 36.854067481714 kg/m2 [facility] ([facility]) Inhaled oxygen concentration 21 % 21 % [facility] ([facility]) Body weight 217 [lb_av] 217 [lb_av] eCW1 ([facility]) Body temperature 97 [degF] 97 [degF] eCW1 ([facility]) Systolic blood pressure 130 mm[Hg] 130 mm[Hg] e CW1 ([facility]) Diastolic blood pressure 70 mm[Hg] 70 mm[Hg] eCW1 ([facility]) Body height 65.25 [in_i] 65.25 [in_i] eCW1 ([facility]) Body mass index (BMI) [Ratio] 35.83 kg/m2 35.83 kg/m2 eCW1 ([facility]) Heart rate 84 /min 84 /min eCW1 ([facility]) Respiratory rate 18 /min 18 /min eCW1 ([facility]) Body temperature 97.2 [degF] 97.2 [degF] CHARTAyad [facility] ([facility]) Heart rate 63 /min 63 /min [facility] ([facility]) Systolic blood pressure 118 mm[Hg] 118 mm[Hg] 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 Systolic blood pressure 128 mm[Hg] Normal (applies t o non-numeric results) 128 mm[Hg] [facility] Diastolic blood pressure 84 mm[Hg] Normal (applies to non-numeric results) 84 mm[Hg] [facility] Heart rate 67 min Normal (applies to non-numeric resul ts) [address] [facility] Body height 164.592 cm Normal (applies to non-numeric resu lts) 164.[address] [facility] Deprecated Oxygen saturation in Capillary blood by Oximetry 98 % Normal (applies to non-numeric results) 98 % [facility] Respiratory rate 14 min Normal (applies to non-numeric results) [address] [facility] Body temperature 36.8 lisa Normal (applies to non-numeric results) 36.[address] [facility] Body weight Measured 218 [lb_av] Normal (applies to n on-numeric results) 218 [lb_av] [facility] Body weight 219.3125 [lb_av] 219.3125 [lb_av] C NELIDAKER ([facility]) Oxygen saturation in Arterial blood by Pulse oximetry 98 % 98 % [facility] ([facility]) Inhaled oxygen concentration 21 % 21 % [facility] ([facility]) Body temperature 97 [degF] 97 [degF] [facility] ER ([facility]) Heart rate 71 /min 71 /min [facility] ([facility]) Systolic blood pressure 134 mm[Hg] 134 mm[Hg] C [facility]MAK[facility] ([facility]) Diastolic blood pressure 88 mm[Hg] 88 mm[Hg] [facility] ([facility]) Respiratory rate 12 /min 12 /min [facility] Body weight 210.00 [lb_av] 210.00 [lb_av] MED[facility] T ([facility], ) Body mass index (BMI) [Ratio] 34.9 kg/m2 34.9 k g/m2 [facility] ([facility], ) Body height 65 [in_i] 65 [in_i] [facility] ([facility], ) 5'5" Patient Treatment Plan of Care Planned Activity Planned Date Details Description Data Source (s) doxycycline hyclate 100 MG Delayed Release Oral Tablet 04/05/2021 12:00:00 AM EDT eCW1 ([facility]) doxycycline hyclate 100 MG Delayed Release Oral Tablet 04/05/2021 12:00:00 AM EDT eCW1 ([facility]) Diphenhydramine Hydrochloride 25 MG Oral Tablet 04/05/2021 12:00:00 AM EDT eCW1 ([facility]) doxycycline hyclate 100 MG Delayed Release Oral Tablet 04/05/2021 12:00:00 AM EDT eCW1 ([facility]) Diphenhydramine Hydrochloride 25 MG Oral Tablet 04/05/2021 12:00:00 AM EDT eCW1 ([facility]) Amoxicillin 875 MG / Clavulanate 125 MG Oral Tablet 03/07/20 12:00:00 AM EDT eCW1 ([facility]) Amoxicillin 875 MG / Clavulanate 125 MG Oral Tablet 03/07/20 12:00:00 AM EDT eCW1 ([facility]) Sulfamethoxazole 800 MG / Trimethoprim 160 MG Oral Tab let [Bactrim] 01/29/2021 12:00:00 AM EDT eCW1 ([facility]) Sulfamethoxazole 800 MG / Trimethoprim 160 MG Oral Tab let [Bactrim] 01/29/2021 12:00:00 AM EDT eCW1 ([facility]) Sulfamethoxazole 800 MG / Trimethoprim 160 MG Oral Tab let [Bactrim] 01/29/2021 12:00:00 AM EDT eCW1 ([facility])
--- OUTSIDE RECORDS SUMMARY | 2021-05-20 08:19 | CCD ---
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 Active confirmed 602695087 Problem Psychophysiologic insomnia F51.04 Active confirmed 149335323 Problem Chronic tension-type headache, not intractable G44 .229 Active confirmed 514056497 Problem Androgenetic alopecia L64.9 Active confirmed 16462869 Problem Cigarette nicotine dependence in remission F17.211 Active confirmed 332275669 Problem Migraine syndrome G43.909 Active confirmed 3 5741103 Problem Generalized anxiety disorder F41.1 Active confirme d 11868607 ALLERGIES Allergen (clinical drug ingredient) Drug/Non Drug Allergy do cumented on EMR Reaction Allergy Type Onset Date Status adhesives Rash Non Drug Allergy Active Wheat wheat GI upset Non Drug Allergy Active ENCOUNTERS from 1983 to 2021-03-15 Encounter Location Date Provider Diagnosis [place] [id number] [facility] [phone] [place] [address] Mar, Zaria Cartagena Acute recurrent sinusitis, u nspecified location J01.91 and Cough R05 IMMUNIZATIONS No Information SOCIAL HISTORY Tobacco Use: Social History Observation Description Date Details (start date - stop date) Former Smoker Sex Assigned At : Social History Observation Description Sex Assigned At Unknown Education: Question Answer Notes Level of Education: High School Audit Question Answer Notes Total Score: 0 Interpretation: Alcohol Education Language: Question Answer Notes Languages spoken: Setswana Muslim: Question Answer Notes Muslim No yazidism beliefs that would impact health care. Domestic [...] FOR REFERRAL No Information VITAL SIGNS Weight 220 lbs Mar, Height 65.25 in Mar, BMI 36.33 kg/m2 Mar, Heart Rate 85 /min Mar, Respiratory Rate 18 /min Mar, Temperature 96.5 degrees Fahrenheit Mar, Oximetry 99 Mar, Blood pressure systolic 122 mm Hg Mar, Blood pressure diastolic 80 mm Hg Mar, MEDICATIONS Medication SIG (Take, Route, Frequency, Duration) Notes Start Da te End Date Status Escitalopram Oxalate 10 MG 1 tablet Orally Once a day for 90 days Not-Taking Sudafed Cold/Cough [id number] MG 2 capsules every 4 hours as needed Orally Four times a day Not-Taking tiZANidine HCl 2 MG 1 tablet as needed Orally Three times a day for 30 Days November, Not-Taking Amoxicillin-Pot Clavulanate 875-125 MG 1 tablet Orally every 12 hrs for 10 day(s) Feb, Active Multi Complete - as directed Orally Active Bactrim DS 800-160 MG 1 tablet Orally Twice a day for 3 days Jan, Not-Taking Mary Allergy 60 MG 1 tablet as needed Orally Once a day Active Apple Cider Vinegar 500 MG as directed Orally Not-Taking Flonase Allergy Relief 50 MCG/ACT 1 spray in each nost ril Nasally Once a day for 30 day(s) Active PROCEDURES No Information RESULTS No Results [...] Treatment Notes Treatm ent Clinical Notes Mar, Acute recurrent sinusitis, unspecified l ocation (ICD-10 - J01.91) Symptoms improving but still having a lot of nasal congestion and drainage; given long duration of symptoms, will continue with Augmentin for total of 3 weeks. If symptoms persist after that, patient is to call and I will order a CT of sinuses. Mar, Cough (ICD-10 - R05) Pneumonia unlikely (lungs clear, O2 sat 99%, no fevers); likely related to sinusitis. She just started mucinex and will continue with this. PLAN OF TREATMENT Medication Medication Name Sig Start Date Stop Date Amoxicillin-Pot Clavulanate 875-125 MG 1 tablet Orally every 12 hrs for 10 day(s) Feb, Treatment Notes Assessment Notes Clinical Notes Acute recurrent sinusitis, unspecified location Symptoms improving but still having a lot of nasal congestion and drainage; given long duration of symptoms, will continue with Augmentin for total of 3 weeks. If symptoms persist after that, patient is to call and I will order a CT of sinuses. Cough Pneumonia unlikely ( lungs clear, O2 sat 99%, no fevers); likely related to sinusitis. She just started mucinex and will continue with this. Next Appt Details as sched 04/04 Reason: Provider Name:Zaria Cartagena, 2021-04-04 07:15:00 AM, [address] [facility], , [place], [address], Insurance Providers Payer Name Payer Address Payer Phone Insured Name Patient Relati onship to Insured Coverage Start Date Coverage End Date BCBS MIKKI ARAUJO O [id number] [facility] [place] [address] JANET HA self
--- OUTSIDE RECORDS SUMMARY | 2021-05-20 08:19 | CCD ---
Author Author [facility] Organization [facility] Address Unknown Phone Unavailable Care Team Providers Care Watch Technician Name Role Phone Zaria Cartagena Unavailable PROBLEMS Type Condition ICD9-CM Code [id number] Code Onset Dates Condition S tatus W/U Status Risk SNOMED Code Notes Problem Acute non-seasonal allergic rhinitis, unspecified trigger J30.89 Active confirmed 83633455 Problem Acquired absence of both cervix and uterus Z90.710 Active confirmed 833236586 Problem Psychophysiologic insomnia F51.04 Active confirmed 104926299 Problem Chronic tension-type headache, not intractable G44 .229 Active confirmed 410393928 Problem Androgenetic alopecia L64.9 Active confirmed 33698625 Problem Cigarette nicotine dependence in remission F17.211 Active confirmed 752290294 Problem Migraine syndrome G43.909 Active confirmed 3 9747327 Problem Generalized anxiety disorder F41.1 Active confirme d 88174313 ALLERGIES Allergen (clinical drug ingredient) Drug/Non Drug Allergy do cumented on EMR Reaction Allergy Type Onset Date Status adhesives Rash Non Drug Allergy Active Wheat wheat GI upset Non Drug Allergy Active ENCOUNTERS from 1983 to 2021-03-08 Encounter Location Date Provider Diagnosis [address] [phone] [place] [address] Feb, Zaria Cartagena Other acute recurrent sinusi tis J01.81 ; Fever, unspecified fever cause R50.9 and Pharyngitis, unspecified etiology J02.9 IMMUNIZATIONS No Information SOCIAL HISTORY Tobacco Use: Social History Observation Description Date Details (start date - stop date) Former Smoker Sex Assigned At : Social History Observation Description Sex Assigned At Unknown Education: Question Answer Notes Level of Education: High School Audit Question Answer Notes Total Score: 0 Interpretation: Alcohol Education Language: Question Answer Notes Languages spoken: Cuban Shinto: Question Answer Notes Shinto No zoroastrianism beliefs that would impact health care. Domestic [...] No Information VITAL SIGNS Weight 220 lbs Feb, Height 65.25 in Feb, BMI 36.33 kg/m2 Feb, Heart Rate 112 /min Feb, Respiratory Rate 18 /min Feb, Temperature 98.3 degrees Fahrenheit Feb, Oximetry 98 Feb, Blood pressure systolic 132 mm Hg Feb, Blood pressure diastolic 78 mm Hg Feb, MEDICATIONS Medication SIG (Take, Route, Frequency, Duration) Notes Start Da te End Date Status Apple Cider Vinegar 500 MG as directed Orally Not-Taking tiZANidine HCl 2 MG 1 tablet as needed Orally Three times a day for 30 Days November, Not-Taking Amoxicillin-Pot Clavulanate 875-125 MG 1 tablet Orally every 12 hrs for 10 day(s) Feb, Active Sudafed Cold/Cough 62-01-829-250 MG 2 capsules every 4 hours as needed Orally Four times a day Active Flonase Allergy Relief 50 MCG/ACT 1 spray in each nost ril Nasally Once a day for 30 day(s) Active Mary Allergy 60 MG 1 tablet as needed Orally Once a day Active Escitalopram Oxalate 10 MG 1 tablet Orally Once a day for 90 days Not-Taking Bactrim DS 800-160 MG 1 tablet Orally Twice a day for 3 days Jan, Not-Taking Multi Complete - as directed Orally Active PROCEDURES No Information RESULTS Component Value Reference Range Rapid Strep (Shama Strep A+ SAAD) Reviewed date:03/07/2021 07:54:18 Interpretation: Performing Lab:[facility], ,[place] [address] Internal Controls Performed (Y/N) yes Rapid Strep (Shama Strep A+ SAAD) negative Result (Positive/Negative) negative SHAMA COVID AG (Point of Care) Reviewed date:03/07/2021 08:01:48 Interpretation: Performing Lab:[facility], [place] INTERFACE [address] [place] [id number] , ,[place] [address] SHAMA COVID ANTIGEN NEGATIVE NEGATIVE REASON FOR VISIT sinus infection MEDICAL (GENERAL) HISTORY Type Description Date Medical [...] Notes Treatment Notes Treatm ent Clinical Notes Feb, Other acute recurrent sinusitis (ICD-10 - J01.81 ) Although she has symptoms < 10 days, she has fever and she is worsening and symptoms are consistent with recurrent sinus infection, which may have been inadequately treated with amoxicillin earlier this month due to resistance of most common pathogens causing sinusitis. I recommended treated with Augmentin - she agrees with plan. Feb, Fever, unspecified fever cause (ICD-10 - R50.9) Feb, Pharyngitis, unspecified etiology (ICD-10 - J02. 9) PLAN OF TREATMENT Medication Medication Name Sig Start Date Stop Date Amoxicillin-Pot Clavulanate 875-125 MG 1 tablet Orally every 12 hrs for 10 day(s) Feb, Treatment Notes Assessment Notes Clinical Notes Other acute recurrent sinusitis Although she has symptoms < 10 days, she has fever and she is worsening and symptoms are consistent with recurrent sinus infection, which may have been inadequately treated with amoxicillin earlier t his month due to resistance of most common pathogens causing sinusitis. I recommended treated with Augmentin - she agrees with plan. Treatment Notes Test Name Order Date GATS (NEGATIVE STREP SCREEN) 2021-03-07 Next Appt Details as sched Reason: Provider Name:Zaria Cartagena, 2021-03-14 08:45:00 AM, [address] [place] [address], , [place], [address], Provider Name:Zaria Cartagena, 2021-04-04 07:15:00 AM, [address] [place] [address], , [place], [address], Insurance Providers Payer Name Payer Address Payer Phone Insured Name Patient Relati onship to Insured Coverage Start Date Coverage End Date BCBS MIKKI ARAUJO PPO [phone] [id number] MAN [facility] [id number] [place] [id number] JANET HA
--- OUTSIDE RECORDS SUMMARY | 2021-05-20 08:19 | CCD ---
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 Name Role Phone Zaria Cartagena Unavailable PROBLEMS Type Condition ICD9-CM Code [id number] Code Onset Dates Condition S tatus W/U Status Risk SNOMED Code Notes Problem Acute non-seasonal allergic rhinitis, unspecified trigger J30.89 Active confirmed 41552993 Problem Acquired absence of both cervix and uterus Z90.710 Active confirmed 461192278 Problem Androgenetic alopecia L64.9 Active confirmed 92307535 Problem Chronic tension-type headache, not intractable G44 .229 Active confirmed 411663888 Problem Chronic sinusitis, unspecified location J32.9 Active confirmed 01797108 Problem Cigarette nicotine dependence in remission F17.211 Active confirmed 211272686 Problem Migraine syndrome G43.909 Active confirmed 3 9456004 Problem Generalized anxiety disorder F41.1 Active confirme d 76374649 Problem Psychophysiologic insomnia F51.04 Active confirmed 116686198 ALLERGIES Allergen (clinical drug ingredient) Drug/Non Drug Allergy do cumented on EMR Reaction Allergy Type Onset Date Status adhesives Rash Non Drug Allergy Active Wheat wheat GI upset Non Drug Allergy Active levofloxacin levoFLOXacin([facility] Code:[address]-35) Rash, swelling Drug Allergy Active ENCOUNTERS from 1983 to 2021-04-05 Encounter Location Date Provider Diagnosis [address] [phone] [place] [address] Mar, Zaria Cartagena Chronic sinusitis, unspecifi ed location J32.9 IMMUNIZATIONS No Information SOCIAL HISTORY Tobacco Use: Social History Observation Description Date Details (start date - stop date) Former Smoker Sex Assigned At : Social History Observation Description Sex Assigned At Unknown Education: Question Answer Notes Level of Education: High School Audit Question Answer Notes Total Score: 0 Interpretation: Alcohol Education Language: Question Answer Notes Languages spoken: Lao Judaism: Question Answer Notes Judaism No baptism beliefs that would impact health care. Domestic [...] REASON FOR REFERRAL No Information VITAL SIGNS No information MEDICATIONS Medication SIG (Take, Route, Frequency, Duration) Notes Start Da te End Date Status diphenhydrAMINE HCl 25 MG 1 tablet Orally Q4H PRN for 10 day(s) Mar, Active Sudafed Cold/Cough 28-50-700-250 MG 2 capsules every 4 hours as [...] Information RESULTS No Results REASON FOR VISIT reaction to abx MEDICAL (GENERAL) HISTORY Type Description Date Medical [...] History lithotripsy for kidney stone on the rig t Surgical History LEEP/partial cervicectomy 2007 Surgical History laparoscopy for diagnosis of endometrios is 2004 Surgical History D&C status post miscarriage 2005, 2008 Surgical History laparoscopic assisted total hysterectomy/bilateral salpingo-oophorectomy 2010 Hospitalization History surgeries as above Goals Section No Information Health Concerns No Information MEDICAL EQUIPMENT No Information MENTAL STATUS No Information FUNCTIONAL STATUS No Information ASSESSMENTS Encounter Date Diagnosis Assessment Notes Treatment Notes Treatm ent Clinical Notes Mar, Chronic sinusitis, unspecified location (ICD-10 - J32.9) PLAN OF TREATMENT Medication Medication Name Sig [...] each nostril Nasall y Once a day Next Appt Details Provider Name:Zaria Bejarano Betysandra, 2021-04-11 08:00:00 AM, [address] [facility], , [place], [address], Insurance Providers Payer Name Payer Address Payer Phone Insured Name Patient Relati onship to Insured Coverage Start Date Coverage End Date BCBS MIKKI ARAUJO PPO [phone] [facility] [employer] [facility] [place] [id number] JANET HA
[2021-05-20] MEDS ORDERED: DOXY50CA51 PO ×2 (08:37)
[2021-05-20] MEDS ORDERED: SUGAMMADEX SODIUM 500 MG/5 ML VIAL (BRIDION) As Ordered ONE (10:11)
[2021-05-20] MEDS ORDERED: COCAINE 4% 4ML NASAL SOLUTION BTL As Ordered ONE (10:12)
[2021-05-20] MEDS ORDERED: OXYMETAZOLINE 0.05% NASAL SPRAY (AFRIN) As Ordered ONE (10:13)
[2021-05-20] MEDS ORDERED: LIDOCAINE W/EPINEPHRINE 1% 20ML VIAL As Ordered ONE (10:13)
[2021-05-20] MEDS ORDERED: propofoL 200 MG/20 ML VIAL As Ordered ONE ×2 (10:14→13:16)
[2021-05-20] MEDS ORDERED: LIDOCAINE 2% 100MG/5ML SDV (FOR ANES.) As Ordered ONE (10:14)
[2021-05-20] MEDS ORDERED: dexameTHASONE 4 MG/ML 1ML VIAL (J1100 PER 1MG) As Ordered ONE (10:14)
[2021-05-20] MEDS ORDERED: ROCURONIUM BROMIDE 50 MG/5 ML VIAL As Ordered ONE (10:14)
[2021-05-20] MEDS ORDERED: ONDANSETRON 4MG/2ML VIAL As Ordered ONE (10:14)
[2021-05-20] MEDS ORDERED: METOCLOPRAMIDE INJ 10MG/2ML VIAL (J2765 PER 1) As Ordered ONE (10:14)
[2021-05-20] MEDS ORDERED: MIDAZOLAM INJ 2MG/2ML VIAL (J2250 PER 1MG) As Ordered ONE (10:15)
[2021-05-20] MEDS ORDERED: fentaNYL 100 MCG/2 ML INJECTION (J3010) As Ordered ONE ×2 (10:15→11:52)
[2021-05-20] MEDS ORDERED: METHYLENE BLUE 0.5% (5MG/ML) 10 ML AMP (PROVAYBLUE) As Ordered ONE (11:22)
[2021-05-20] MEDS ORDERED: DESFLURANE 240 ML INHALANT As Ordered ONE (12:55)
[2021-05-20] MEDS ORDERED: ACETAMINOPHEN 1000MG 100ML IV BTL (OFIRMEV) (J0131 PER 10MG) As Ordered ONE (13:00)
[2021-05-20] MEDS ORDERED: LR 1,000 ML IV SCH ×2 (14:00→14:10)
[2021-05-20] MEDS ORDERED: ANEXSIA, NORCO 7.5MG/325MG TABLET(HYDROCODONE/APAP) PO PRN (14:05)
[2021-05-20] MEDS ORDERED: MORPHINE 10 MG/ML 1ML VIAL (J2270) IV PRN (14:05)
[2021-05-20] MEDS ORDERED: HYDROMORPHONE HCL 0.5 MG/ 0.5 ML SYRINGE (J1170 PER 1) IV PRN (14:10)
[2021-05-20] MEDS ORDERED: fentaNYL 100 MCG/2 ML INJECTION (J3010) IV PRN (14:10)
[2021-05-20] MEDS ORDERED: oxyCODONE 5MG TAB PO PRN (14:10)
[2021-05-20] MEDS ORDERED: ONDANSETRON 4MG/2ML VIAL IV PRN ×2 (14:10)
--- NOTE | 2021-05-20 14:19 | ROOPDOC ---
[facility] Report Of Operation Report of Operation DATE OF PROCEDURE: 05/20/21 PREPROCEDURE DIAGNOSES: Chronic sinusitis, septal deviation, hypertrophic inferior turbinates. POSTPROCEDURE DIAGNOSES: Same PROCEDURE PERFORMED: Bilateral intranasal image guided antrostomies with removal of tissue, bilateral intranasal image guided total ethmoidectomies with removal of tissue, bilateral intranasal image guided frontal sinusotomies with removal of tissue, septoplasty, bilateral inferior turbinoplasty, resection of right middle turbinate. SURGEON: MD Blanco AUTO BODY TECHNICIAN: MD Sergio ANESTHESIA: General. ESTIMATED BLOOD LOSS: Approximately 150 mL. COMPLICATIONS: None. REMARKS: . FINDINGS: SPECIMENS REMOVED: Left sinus contents PROCEDURE NOTE: . Patient was seen in the office and diagnosed with the above condition. The decision was made in consultation with the patient after explanation of risks and benefits to undergo the above-named procedure. The patient was admitted through same-day surgery program and taken to the operating room where she was administered a general anesthetic by intravenous injection. The patient was then intubated endotracheally. The nose was decongested with 4 mL of 4% cocaine solution. A CT scan was done prior to the procedure, the images were reconstructed into 3- dimensional display that was used at the time of surgery for image localization. This was necessary because of the frontal disease. The image guided array was placed on the forehead. The patient was draped in the usual fashion. The fiducial points were entered in the computer and excellent accuracy was obtain ed. The pledgets were removed from the left side of the nose and the 4 mm endoscope was inserted. The root of middle turbinate and used and it were visualized. These were injected with 1% lidocaine with epinephrine. Using the [place] elevator. The use and it was incised vertically. This was removed with a Coy forceps. The curved tracking suction was used to identify the maxillary sinus ostium. This was enlarged with the backbiting forceps with the microdebrider. Debris was removed inferiorly and from the sinus itself with the curved suction. We then used the image guided microdebrider to enter the ethmoid bulla. We cleaned out the anterior ethmoid air cells with the image guided microdebrider and the Coy forcep. We penetrated through the ground lamella and cleaned out the posterior ethmoid air cells in a similar fashion. Using the curved tracking suction D&C. Ethmoid cells were removed in a posterior to anterior fashion taking care to avoid the cribriform plate. Using the frontal sinus seeker. We identified the frontal recess. The balloon was passed up into the frontal sinus and the ostium was dilated. We then irrigated thoroughly. The balloon was removed and additional tissue was removed from the frontal recess, taking care to avoid the cribriform plate area. Afrin soaked strip gauze was then placed on this side of the nose and we moved to the left side. The scope was removed and inserted on the right side. The septum was significantly deviated to the side and access to the sinus was not possible note was made of an inferior spur impinging on the turbinate. The right septal was injected with 1% lidocaine and epinephrine. Using a [place] blade to have right hemitransfixion incision was created. Using the [place] elevator. The mucosa was elevated and the subperichondrial plane. This was extended posteriorly over the perpendicular plate of the ethmoid and inferiorly over the vomer. We the bony and cartilaginous septums with the [place] elevator and elevated on the opposite side. The deviated portion of the bone and cartilage posteriorly was removed. A strip of cartilage was removed inferiorly, taking care to leave more than a centimeter of tip support. We elevated on either side of the maxillary crest and the deviated portion was removed with a 4 mm osteotome. We reapproximated the anterior hemitransfixion incision with interrupted 4-0 chromic suture. The septum was quilted with interrupted 4-0 plain gut suture. The left inferior turbinate was injected with 1% lidocaine with epinephrine. A vertical incision was made with a [place] blade. We elevated the mucosa off the submucosal plane. We then lateralized this with the [place] elevator. The right inferior turbinate was injected with 1% lidocaine with epinephrine. We elevated the mucosa off the turbinate with the [place] elevator. The 2.9 mm microdebrider blade was used to reduce this along its length. This was then lateralized with a [place] elevator. Magnetic splints were placed on either side of the septum and secured anteriorly with a 3-0 nylon suture. Slim l rosemarie were placed against the inferior turbinates and removed in recovery. A mustache dressing was placed under the nose. The patient was then allowed to recover from anesthesia and was taken to the post anesthesia care area in stable condition. There were no complications during this procedure. The 4 mm endoscope was then placed into the right side of the nose. The root of the middle turbinate and uncinate process were visualized. These were injected with 1% lidocaine and epinephrine. Using the [place] elevator the use and it was incised vertically. This was removed from the Coy forceps. The curved tracking suction was used to identify the maxillary sinus ostium. This was enlarged with the backbiting forceps with the microdebrider. Debris was removed inferiorly and from the sinus itself with a curved suction. We then used the image guided microdebrider to enter the ethmoid bulla. We cleaned out the anterior ethmoid air cells with the image guided microdebrider and the Coy forceps. We penetrated through the ground lamella and cleaned out the posterior ethmoid air cells in a similar fashion. Using the curved tracking suction D&C. Ethmoid cells were removed in a posterior to anterior fashion taking care to avoid the cribriform plate. Using the frontal sinus seeker. We identified the frontal recess. The balloon was passed up into the frontal sinus and the ostium was dilated. We then irrigated thoroughly. The balloon was removed and additional tissue was removed from the frontal recess, taking care to avoid the cribriform plate area. Afrin soaked strip gauze was then placed on this side. The packing was once again removed from the left side of the nose and the middle turbinate examined, this was found to be stable. We then placed FloSeal on the side of the nose we moved to the left side of the nose. The packing was removed. The turbinate was examined on this side. This is extremely atrophic and unstable and concerned about its ability to not obstruct the sinus drainage pathways was present. The decision was made to resect this with a curved turbinate scissor. FloSeal was placed on this side of the nose as well. Magnetic splints were placed on either side of the septum and secured anteriorly with a 3-0 nylon suture. Slim lines were placed against the inferior turbinates and removed in recovery. A mustache dressing was placed under the nose. The patient was then allowed to recover from anesthesia and was taken to the post anesthesia care area in stable condition. There were no complications during this procedure. DESCRIPTION OF PROCEDURE: . Santiago Simeon MD May 20, 2021 14:19
[2021-05-20 15:30] VITALS: BP 134/77
== END 2021-05-20 15:54 | disposition home or self-care (01) ==
LOC: M SDC 08:13
PROVIDERS: ATTEND Otolaryngology
DX: J33.9 Nasal polyp, unspecified (principal); J34.2 Deviated nasal septum; J34.3 Hypertrophy of nasal turbinates; K58.9 Irritable bowel syndrome, unspecified; K21.9 Gastro-esophageal reflux disease without esophagitis; M54.9 Dorsalgia, unspecified; Z87.440 Personal history of urinary (tract) infections; Z87.891 Personal history of nicotine dependence; Z88.1 Allergy status to other antibiotic agents; Z91.048 Other nonmedicinal substance allergy status; Z79.899 Other long term (current) drug therapy
CPT/HCPCS: 30520; 30802; 30999; 31267; 31296; 61782; 88305; C9046; J0131; J1100; J2250; J2405; J2765; J3010; Q9968

== ENCOUNTER 2021-06-21 11:28 | Emergency (ER) | payer BC ==
[~2021-06-21] VITALS: Ht 165.1 cm; Wt 99.9 kg
[~2021-06-21 11:28] MED LIST changes: +DOXY50CA51 PO; -LR 1,000 ML IV ONE
[2021-06-21] MEDS ORDERED: AMOX500T2 PO (11:44)
[2021-06-21 13:09] LABS: BASO # 0.1 10^3/uL (0.0-0.2); EOS # 0.3 10^3/uL (0.0-0.5); HEMATOCRIT 37.5 % (36.0-47.0); LYMPH # 1.9 10^3/uL (1.5-5.0); LYMPH % 36.5 % (24.0-44.0); MEAN CORPUSCULAR HEMOGLOBIN 28.3 pg (27.0-33.0); MEAN CORPUSCULAR VOLUME 88.4 fl (80.0-96.0); MONO # 0.4 10^3/uL (0.0-0.8); MONO % 7.1 % (2.0-8.0); NEUTROPHILS # 2.6 10^3/uL (1.5-8.5); NEUTROPHILS % 50.2 % (36.0-66.0); PLATELET COUNT, AUTOMATED 298 10^3/uL (150-450); RED BLOOD COUNT 4.24 10^6/uL (4.00-5.40); WHITE BLOOD COUNT 5.2 10^3/uL (4.0-10.0)
[2021-06-21] MEDS ORDERED: ISOVUE-370 76% 100ML VIAL As Ordered ONE (13:36)
[2021-06-21 13:47] LABS: ALBUMIN 3.9 GM/DL (3.2-5.2); BILIRUBIN,DIRECT 0.1 MG/DL (0.0-0.2); BILIRUBIN,TOTAL 0.4 MG/DL (0.2-1.0); THYROID STIMULATING HORMONE 1.97 uIU/ML (0.358-3.740); THYROXINE (T4) 8.6 UG/DL (4.5-12.0); TOTAL PROTEIN 7.2 GM/DL (6.4-8.2)
[2021-06-21] MEDS ORDERED: DOXY-342 PO (15:52)
[2021-06-21 16:18] VITALS: BP 137/90
== END 2021-06-21 16:30 | disposition home or self-care (01) ==
LOC: M ED 11:28
DX: J18.9 Pneumonia, unspecified organism (principal); J45.909 Unspecified asthma, uncomplicated; Z79.51 Long term (current) use of inhaled steroids; Z88.1 Allergy status to other antibiotic agents; Z91.048 Other nonmedicinal substance allergy status
CPT/HCPCS: 36415; 71045; 71275; 80047; 80076; 83880; 84436; 84443; 84484; 85025; 87804; 93005; 93041; 94760; 99284; Q9967

== ENCOUNTER 2022-03-25 12:19 | Emergency (ER) | payer BC ==
[~2022-03-25] VITALS: Ht 165.1 cm; Wt 95.5 kg
[~2022-03-25 12:19] MED LIST changes: +AMOX500T2 PO; +DOXY-342 PO
[2022-03-25 12:20] VITALS: BP 127/80
[2022-03-25] MEDS ORDERED: KETOROLAC 30 MG/ML 1ML VIAL IV ONE (15:00)
[2022-03-25] MEDS ORDERED: ONDANSETRON 4MG 2ML VIAL IV ONE (15:00)
[2022-03-25] MEDS ORDERED: NS 1,000 ML IV ONE (15:00)
[2022-03-25 15:17] LABS: BASO # 0.1 10^3/uL (0.0-0.2); BASO % 1.2 % (0.0-1.0); EOS # 0.3 10^3/uL (0.0-0.5); EOS % 6.1 % (0.0-3.0); HEMATOCRIT 40.8 % (36.0-47.0); HEMOGLOBIN 12.9 g/dl (12.0-15.5); LYMPH # 1.8 10^3/uL (1.5-5.0); LYMPH % 35.8 % (24.0-44.0); MEAN CORPUSCULAR HEMOGLOBIN 28.4 pg (27.0-33.0); MEAN CORPUSCULAR HGB CONC 31.6 g/dl (32.0-36.5); MEAN CORPUSCULAR VOLUME 89.9 fl (80.0-96.0); MONO # 0.3 10^3/uL (0.0-0.8); MONO % 5.9 % (2.0-8.0); NEUTROPHILS # 2.6 10^3/uL (1.5-8.5); NEUTROPHILS % 50.8 % (36.0-66.0); PLATELET COUNT, AUTOMATED 234 10^3/uL (150-450); RED BLOOD COUNT 4.54 10^6/uL (4.00-5.40); WHITE BLOOD COUNT 5.1 10^3/uL (4.0-10.0)
[2022-03-25 16:15] LABS: ALT/SGPT 22 U/L (12-78); BILIRUBIN,DIRECT 0.1 MG/DL (0.0-0.2); BILIRUBIN,TOTAL 0.4 MG/DL (0.2-1.0); BLOOD UREA NITROGEN 16 MG/DL (7-18); CALCIUM LEVEL 9.2 MG/DL (8.5-10.1); CARBON DIOXIDE LEVEL 29 MEQ/L (21-32); CHLORIDE LEVEL 105 MEQ/L (98-107); CREATININE FOR GFR 0.68 MG/DL (0.55-1.30); GLOMERULAR FILTRATION RATE > 60.0 (>60); GLUCOSE, FASTING 82 MG/DL (70-100); LIPASE 203 U/L (73-393); POTASSIUM SERUM 4.3 MEQ/L (3.5-5.1); SODIUM LEVEL 139 MEQ/L (136-145); TOTAL PROTEIN 7.4 GM/DL (6.4-8.2)
[2022-03-25] MEDS ORDERED: ONDA4TAB6 PO (16:38)
== END 2022-03-25 16:58 | disposition home or self-care (01) ==
LOC: M ED 12:19
DX: K80.20 Calculus of gallbladder without cholecystitis without obstruction (principal); Z88.1 Allergy status to other antibiotic agents; Z91.048 Other nonmedicinal substance allergy status
CPT/HCPCS: 74176; 76705; 80048; 80076; 81000; 81015; 83690; 84484; 85025; 96361; 96374; 96375; 99283; J1885; J2405

== ENCOUNTER → 2022-04-18 | Outpatient (REF) | payer BC ==
[~2022-04-18] MED LIST changes: +APAP500T10 PO; +ONDA4TAB6 PO; +VITACAP8 PO
[2022-04-18 17:15] LABS: BASO # 0.1 10^3/uL (0.0-0.2); BASO % 1.1 % (0.0-1.0); EOS # 0.5 10^3/uL (0.0-0.5); EOS % 6.4 % (0.0-3.0); LYMPH # 2.3 10^3/uL (1.5-5.0); LYMPH % 31.8 % (24.0-44.0); MEAN CORPUSCULAR HEMOGLOBIN 28.7 pg (27.0-33.0); MEAN CORPUSCULAR HGB CONC 31.6 g/dl (32.0-36.5); MEAN CORPUSCULAR VOLUME 90.9 fl (80.0-96.0); MONO # 0.6 10^3/uL (0.0-0.8); MONO % 7.6 % (2.0-8.0); NEUTROPHILS # 3.9 10^3/uL (1.5-8.5); NEUTROPHILS % 52.8 % (36.0-66.0); PLATELET COUNT, AUTOMATED 245 10^3/uL (150-450); RED BLOOD COUNT 4.18 10^6/uL (4.00-5.40); WHITE BLOOD COUNT 7.4 10^3/uL (4.0-10.0)
[2022-04-18 17:44] LABS: INR 0.87; PROTHROMBIN TIME 12.2 SECONDS (12.7-14.5)
[2022-04-18 17:45] LABS: PARTIAL THROMBOPLASTIN TIME 29.7 SECONDS (25.9-37.0)
== END ==
LOC: M PLALAB 16:49
PROVIDERS: ATTEND Physician Assistant
DX: R23.3 Spontaneous ecchymoses (principal)

== ENCOUNTER → 2022-04-20 | Outpatient (CLI) | payer BC | LOC: M LABSMTC 10:57 | PROVIDERS: ATTEND Anesthesiology | DX: Z01.812 Encounter for preprocedural laboratory examination (principal); Z11.52 Encounter for screening for COVID-19 ==

== ENCOUNTER 2022-04-24 06:03 | Day surgery (SDC) | payer BC ==
[~2022-04-24] VITALS: Ht 165.1 cm; Wt 93.0 kg
[~2022-04-24 06:03] MED LIST changes: +AMPICILLIN SOD/SULBACTAM SOD 3 GM in D5W MINI-BAG PLUS 100 ML IV ONE; +CelecoXIB 400 MG CAP PO ONE; -DOXY-342 PO; +DOXY100C81 PO; +INDOCYANINE GREEN 25MG VIAL (IC-GREEN) IV ONE
[2022-04-24] MEDS ORDERED: LIDOCAINE 1% SDV 30ML VIAL As Ordered ONE (07:09)
[2022-04-24] MEDS ORDERED: BUPIVACAINE HCL 0.25% 30ML VIAL As Ordered ONE (07:10)
[2022-04-24] MEDS ORDERED: INDOCYANINE GREEN 25MG VIAL (IC-GREEN) As Ordered ONE (07:26)
[2022-04-24] MEDS ORDERED: fentaNYL 250 MCG/5 ML INJECTION As Ordered ONE (07:52)
[2022-04-24] MEDS ORDERED: LIDOCAINE 2% 100MG/5ML SDV (FOR ANES.) As Ordered ONE (07:52)
[2022-04-24] MEDS ORDERED: dexameTHASONE 4 MG/ML 1ML VIAL (J1100 PER 1MG) As Ordered ONE (07:52)
[2022-04-24] MEDS ORDERED: ROCURONIUM BROMIDE 50 MG/5 ML VIAL As Ordered ONE (07:52)
[2022-04-24] MEDS ORDERED: propofoL 200 MG/20 ML VIAL As Ordered ONE (07:52)
[2022-04-24] MEDS ORDERED: SUGAMMADEX SODIUM 500 MG/5 ML VIAL (BRIDION) As Ordered ONE (07:52)
[2022-04-24] MEDS ORDERED: MIDAZOLAM INJ 2MG/2ML VIAL (J2250 PER 1MG) As Ordered ONE (07:52)
[2022-04-24] MEDS ORDERED: ONDANSETRON 4MG 2ML VIAL As Ordered ONE (07:52)
[2022-04-24] MEDS ORDERED: ACETAMINOPHEN 1000MG 100ML IV BAG As Ordered ONE (07:57)
[2022-04-24] MEDS ORDERED: HYDROMORPHONE HCL 0.5 MG/ 0.5 ML SYRINGE (J1170 PER 1) IV PRN (08:35)
[2022-04-24] MEDS ORDERED: LR 1,000 ML IV SCH (08:35)
[2022-04-24] MEDS ORDERED: ONDANSETRON 4MG 2ML VIAL IV PRN (08:35)
[2022-04-24] MEDS ORDERED: oxyCODONE 5MG TAB PO PRN (08:35)
[2022-04-24] MEDS ORDERED: OXYC1TAB23 PO (09:22)
[2022-04-24] MEDS ORDERED: PERCOCET 5MG/325MG TAB PO PRN ×2 (09:25)
[2022-04-24] MEDS ORDERED: KETOROLAC 30 MG/ML 1ML VIAL IV PRN (09:25)
[2022-04-24] MEDS: fentaNYL 100 MCG/2 ML INJECTION IV PRN ×4 (09:28→09:55)
[2022-04-24] MEDS ORDERED: METOCLOPRAMIDE INJ 10MG/2ML VIAL (J2765 PER 1) IV PRN (10:10)
[2022-04-24 11:34] VITALS: BP 117/68
== END 2022-04-24 11:46 | disposition home or self-care (01) ==
LOC: M SDC 06:03
PROVIDERS: ATTEND Surgery
DX: K80.10 Calculus of gallbladder with chronic cholecystitis without obstruction (principal); R16.0 Hepatomegaly, not elsewhere classified; J45.909 Unspecified asthma, uncomplicated; J34.2 Deviated nasal septum; J32.9 Chronic sinusitis, unspecified; J34.3 Hypertrophy of nasal turbinates; F32.A Depression, unspecified; Z87.442 Personal history of urinary calculi; Z88.1 Allergy status to other antibiotic agents; Z91.048 Other nonmedicinal substance allergy status; Z87.891 Personal history of nicotine dependence
CPT/HCPCS: 47563; 64488; 88304; J0131; J0295; J1100; J1885; J2250; J2405; J3010; S2900

== ENCOUNTER 2024-09-26 16:49 | Emergency (ER) | payer MEDICAID, OTHER, SELFPAY ==
[~2024-09-26] VITALS: Ht 165.1 cm; Wt 66.1 kg
[~2024-09-26 16:49] MED LIST changes: -AMPICILLIN SOD/SULBACTAM SOD 3 GM in D5W MINI-BAG PLUS 100 ML IV ONE; -CelecoXIB 400 MG CAP PO ONE; +DOXY-442 PO; -DOXY100C81 PO; +DOXY50CA50 PO; -DOXY50CA51 PO; +FINA1TAB PO; -INDOCYANINE GREEN 25MG VIAL (IC-GREEN) IV ONE; +ONDA-282 PO; -ONDA4TAB6 PO; +OXYC1TAB23 PO; -PROP1TAB PO
[2024-09-26 17:27] LABS: HEMATOCRIT 40.9 % (36.0-47.0); MEAN CORPUSCULAR HEMOGLOBIN 29.6 pg (27.0-33.0); MEAN CORPUSCULAR HGB CONC 31.8 g/dl (32.0-36.5); MEAN CORPUSCULAR VOLUME 93.2 fl (80.0-96.0); PLATELET COUNT, AUTOMATED 281 10^3/uL (150-450); RED BLOOD COUNT 4.39 10^6/uL (4.00-5.40); WHITE BLOOD COUNT 9.6 10^3/uL (4.0-10.0)
[2024-09-26 17:34] LABS: KETONE, URINE AUTO RFX NEGATIVE (NEGATIVE); NITRITE, URINE AUTO RFX NEGATIVE (NEGATIVE); RBC, URINE AUTO RFX 13 /HPF (0-3); SQUAM EPITHELIAL CELL UR AURFX 0 /HPF (0-6)
[2024-09-26 17:35] LABS: LEUKOCYTE ESTERASE UR AUTO RFX 3+ (NEGATIVE); WBC, URINE AUTO RFX TNTC /HPF (0-3)
[2024-09-26 17:49] LABS: LIPASE 54 U/L (12-53)
[2024-09-26 17:51] LABS: ALKALINE PHOSPHATASE 87 U/L (35-104); ALT/SGPT 17 U/L (7.0-40); AST/SGOT 10 U/L (<34); BILIRUBIN,DIRECT < 0.1 MG/DL (<0.4); BILIRUBIN,TOTAL 0.3 MG/DL (0.3-1.2); BLOOD UREA NITROGEN 16 MG/DL (9-23); CALCIUM LEVEL 9.5 MG/DL (8.5-10.1); CARBON DIOXIDE LEVEL 29 MMOL/L (20-31); CHLORIDE LEVEL 104 MMOL/L (98-107); CREATININE FOR GFR 0.67 MG/DL (0.55-1.30); GLOMERULAR FILTRATION RATE > 60.0 (>58); GLUCOSE, FASTING 119 MG/DL (60-100); POTASSIUM SERUM 3.9 MMOL/L (3.5-5.1); SODIUM LEVEL 142 MMOL/L (136-145); TOTAL PROTEIN 6.9 G/DL (5.7-8.2)
[2024-09-26] MEDS: ACETAMINOPHEN *IV* 1,000 MG in IV 1 EA IV ONE (21:00)
[2024-09-26] MEDS ORDERED: CEFD1CAP9 PO (21:08)
[2024-09-26] MEDS: cefTRIAXone SOD 1 GM in DEXTROSE 5% (D5W) ADV/MINI-BAG 50 ML IV ONE (21:17)
[2024-09-26 21:50] VITALS: BP 110/65; TEMP 97.4; O2SAT 100
== END 2024-09-26 21:55 | disposition home or self-care (01) ==
LOC: M ED 16:49
DX: N10 Acute pyelonephritis (principal); K21.9 Gastro-esophageal reflux disease without esophagitis; J45.909 Unspecified asthma, uncomplicated; K58.9 Irritable bowel syndrome, unspecified; Z87.442 Personal history of urinary calculi; G43.909 Migraine, unspecified, not intractable, without status migrainosus; F17.290 Nicotine dependence, other tobacco product, uncomplicated; Z79.899 Other long term (current) drug therapy; Z88.8 Allergy status to other drugs, medicaments and biological substances; Z91.89 Other specified personal risk factors, not elsewhere classified
CPT/HCPCS: 74176; 80048; 80076; 81001; 83690; 85027; 87088; 87186; 96365; 96367; 99284; J0131; J0696